=== PATIENT | female | born 1990 | race Two or more races ===

== ENCOUNTER 2017-02-24 10:02 | Emergency (ER) | payer OTHER ==
[2017-02-24] MEDS ORDERED: Ondansetron INJ* 2 MG/ML VIAL IV ONE (13:57)
[2017-02-24] MEDS ORDERED: Morphine INJ* 4 MG/ML 1 ML SYRINGE IV ONE (13:57)
[2017-02-24] MEDS ORDERED: NS 0.9% 1000 ML* 1,000 ML IV ONE (13:57)
[2017-02-24 14:50] LABS: Hematocrit 38 % (35-47); Hemoglobin 12.4 g/dl (12.0-16.0); Mean Corpuscular HGB Conc 33 g/dl (31-36); Mean Corpuscular Hemoglobin 26 pg (27-31); Mean Corpuscular Volume 80 fL (80-97); Mean Platelet Volume 8 um3 (7.4-10.4); Red Cell Distribution Width 16 % (10.5-15); White Blood Count 8.7 10^3/ul (3.5-10.8)
[2017-02-24 15:02] LABS: Urine Bacteria 3+ (Absent); Urine Bilirubin Negative (Negative); Urine Glucose Negative (Negative); Urine Nitrite Positive (Negative)
[2017-02-24 15:10] LABS: ALT 8 U/L (7-52); AST 10 U/L (13-39); Albumin 3.8 g/dL (3.2-5.2); Alkaline Phosphatase 43 U/L (34-104); Amylase 31 U/L (29-103); Anion Gap 6 mmol/L (2-11); BUN/Creatinine Ratio 14.5 (8-20); Blood Urea Nitrogen 10 mg/dL (6-24); C Reactive Protein 2.08 mg/L (< 5.00); CO2 Carbon Dioxide 24 mmol/L (22-32); Calcium 8.6 mg/dL (8.6-10.3); Chloride 106 mmol/L (101-111); EGFR African American 133.3 (>60); EGFR Non-African American 103.7 (>60); Globulin 3.1 g/dL (2-4); Glucose 88 mg/dL (70-100); Lipase 14 U/L (11.0-82.0); Magnesium 2.2 mg/dL (1.9-2.7); Potassium 3.7 mmol/L (3.5-5.0); Sodium 136 mmol/L (133-145); Total Protein 6.9 g/dL (6.4-8.9)
[2017-02-24] MEDS ORDERED: Iohexol 300* (CONTRAST) 10 ML SDV IV ONE (16:10)
--- NOTE | 2017-02-24 16:55 | RAD ---
INDICATION: Right lower quadrant abdominal pain. COMPARISON: Comparison is made with a prior CT of the abdomen and pelvis from April 06, 2016. TECHNIQUE: A CT scan of the abdomen and pelvis was performed with intravenous and oral contrast following intravenous injection of 150 ml of Omnipaque 300 nonionic contrast. Contiguous axial sections were obtained from the lung bases through the symphysis pubis. Images were reconstructed in the coronal and sagittal planes. FINDINGS: The lung bases are clear. No pleural effusion is present. The liver is within normal limits in size. There is a focal area of decreased attenuation present in the medial segment of the left hepatic lobe nonspecific although suggestive of focal fatty infiltration. The patient is status post cholecystectomy. No intra or extrahepatic ductal distention is noted. The spleen is upper limits of normal in size without focal abnormality. The pancreas appears to be within normal limits. The kidneys and adrenal glands are normal in size. No hydronephrosis is seen. No significant focal renal abnormality is seen. The aorta is normal in caliber and demonstrates homogeneous contrast opacification. No significant enlarged retroperitoneal lymph nodes are seen. The stomach, small and large bowel appear nondistended. The appendix is within normal limits. There is mild sigmoid diverticulosis. There is no evidence for diverticulitis or colitis. The uterus is anteverted and normal in size although heterogeneous suggestive of fibroid infiltration. There is a 2 cm involuting left follicular cyst and a small amount of free intraperineal fluid in the pelvis which extends into the right paracolic gutter. No significant focal osseous abnormality is seen. IMPRESSION: 1. 2 CM INVOLUTING LEFT FOLLICULAR CYST AND SMALL AMOUNT OF FREE INTRAPERITONEAL FLUID IN THE PELVIS. 2. STATUS POST CHOLECYSTECTOMY.
[2017-02-24] MEDS ORDERED: Ciprofloxacin TAB* 500 MG PO ONE (17:13)
[2017-02-24 18:04] VITALS: BP 119/66
--- NOTE | 2017-02-24 18:19 | ED ---
Nitin Akers Aidan, scribed for Efra Lowe MD on 02/24/17 at 1452 . Abdominal Pain/Female - HPI Summary HPI Summary: 26 y/o female presents to the ED with a complaint of acute, severe (reported 10/ 10) episodes of RLQ abdominal pain that radiate to her lower back and have persisted intermittently for the past week. Associated symptoms include nausea and vomiting. She denies any diarrhea, constipation, or . She had similar symptoms previously when she was diagnosed with hydronephrosis. Her last period was on February 05. Hx of trigeminal neuralgia, kidney stones, and gallbladder removal. - History of Current Complaint Chief Complaint: EDAbdPain Stated Complaint: ABD PAIN Time Seen by Provider: 02/24/17 13:49 Hx Obtained From: Patient Hx Last Menstrual Period: 02/05/17 ?: No Onset/Duration: Sudden Onset, Lasting Weeks - roughly 1 week, Still Present Timing: Constant Severity Initially: Moderate Severity Currently: Severe Pain Intensity: 8 - Pt reported 10/10 during examination. Pain Scale Used: 0-10 Numeric Location: Discrete At: RLQ Radiates: Yes Radiates to: Back - lower back Character: Sharp, Cramping Aggravating Factor(s): Other: - unknown Alleviating Factor(s): Other: - unknown Associated Signs and Symptoms: Positive: Nausea, Vomiting. Negative: Diarrhea - Risk Factors Ovarian Torsion Risk Factor: Reproductive Age Allergies/Adverse Reactions: Allergies Allergy/AdvReac Type Severity Reaction Status Date / Time Clarithromycin [From Biaxin] Allergy Intermediate Hives/fever Verified 07/08/16 14:26 Sulfamethoxazole Allergy Intermediate Hives Verified 07/08/16 14:26 w/Trimethoprim [From Bactrim] PMH/Surg Hx/FS Hx/Imm Hx Previously Healthy: No - Hx of trigeminal neuralgia, kidney stones, gallbladder removal Endocrine/Hematology History: Reports: Hx Anemia Denies: Hx Anticoagulant Therapy, Hx Diabetes, Hx Thyroid Disease, Other Endocrine/Hematological Disorders Cardiovascular History: Denies: Hx Congestive Heart Failure, Hx Hypertension, Hx Pacemaker/ICD, Other Cardiovascular Problems/Disorders Respiratory History: Reports: Hx Asthma Denies: Hx Chronic Obstructive Pulmonary Disease (COPD), Other Respiratory Problems/Disorders GI History: Reports: Hx Gall Bladder Disease Denies: Hx Ulcer, Other GI Disorders History: Reports: Other Problems/Disorders - Hx hydronephrosis x 1 year rt side/hx uti Denies: Hx Dialysis, Hx Renal Disease Musculoskeletal History: Denies: Hx Back Problems, Other Musculoskeletal History - R wrist fx x2 age 15, right ankle fracture Sensory History: Denies: Hx Contacts or Glasses, Hx Hearing Aid, Other Sensory Impairments Opthamlomology History: Denies: Hx Contacts or Glasses, Other Sensory Impairments Neurological History: Reports: Other Neuro Impairments/Disorders - trigeminal neuralgia Psychiatric History: Reports: Hx Anxiety, Hx Attention Deficit Hyperactivity Disorder, Hx Depression, Hx Panic Disorder - ANXIETY Denies: Other Psychiatric Issues/Disorders - Surgical History Surgery Procedure, Year, and Place: RT ANKLE FX-PINS SCREWS. . Gall Bladder. Tonsillectomy Hx Anesthesia Reactions: Yes - n/v Infectious Disease History: No Infectious Disease History: Denies: Hx Hepatitis, Hx Human Immunodeficiency Virus (HIV), History Other Infectious Disease, Traveled Outside the in Last 30 Days - Family History Known Family History: Positive: Hypertension Family History: No FHX of malignant hyperthermia. No FHx of anesthesia reaction - Social History Occupation: Employed Full-time Lives: Alone Alcohol Use: Occasionally Hx Substance Use: No Substance Use Type: Reports: None, Other Substance Use Comment - Amount & Last Used: prescribed. Smoking Status (MU): Light Every Day Tobacco Smoker Type: Cigarettes Amount Used/How Often: "socially" Review of Systems Constitutional: Negative Eyes: Negative ENT: Negative Cardiovascular: Negative Respiratory: Negative Positive: Abdominal Pain, Vomiting, Nausea. Negative: Diarrhea Genitourinary: Negative Musculoskeletal: Negative Skin: Negative Neurological: Negative Psychological: Normal All Other Systems Reviewed And Are Negative: Yes Physical Exam - Summary Physical Exam Summary: VITAL SIGNS: Reviewed. GENERAL: Patient is a well-developed and obese FEMALE who is lying comfortable in the stretcher. Patient is not in any acute respiratory distress. HEAD AND FACE: No signs of trauma. No ecchymosis, hematomas or skull depressions. No sinus tenderness. EYES: PERRLA, EOMI x 2, No injected conjunctiva, no nystagmus. EARS: Hearing grossly intact. Ear canals and tympanic membranes are within normal limits. MOUTH: Oropharynx within normal limits. NECK: Supple, trachea is midline, no adenopathy, no JVD, no carotid bruit, no c- spine tenderness, neck with full ROM. CHEST: Symmetric, no tenderness at palpation LUNGS: Clear to auscultation bilaterally. No wheezing or crackles. CVS: Regular rate and rhythm, S1 and S2 present, no murmurs or gallops appreciated. ABDOMEN: Soft. Positive RLQ tenderness. No signs of distention. No rebound no guarding, and no masses palpated. Bowel sounds are normal. EXTREMITIES: FROM in all major joints, no edema, no cyanosis or clubbing. NEURO: Alert and oriented x 3. No acute neurological deficits. Speech is normal and follows commands. SKIN: Dry and warm Triage Information Reviewed: Yes Vital Signs On Initial Exam: Initial Vitals Temp Pulse Resp BP Pulse Ox 97.2 F 71 17 101/53 100 02/24/17 10:56 02/24/17 10:56 02/24/17 10:56 02/24/17 10:56 02/24/17 10:56 Vital Signs Reviewed: Yes - Rita Coma Scale Coma Scale Total: 15 Diagnostics - Vital Signs Vital Signs Temp Pulse Resp BP Pulse Ox 02/24/17 14:36 16 02/24/17 11:53 97.4 F 67 17 96/64 100 02/24/17 10:58 97.8 F 78 17 101/53 100 02/24/17 10:56 97.2 F 71 17 101/53 100 - Laboratory Lab Results: Lab Results 02/24/17 02/24/17 02/24/17 Range/Units 14:10 14:10 14:10 WBC 8.7 (3.5-10.8) 10^3/ul RBC 4.80 (4.0-5.4) 10^6/ul Hgb 12.4 (12.0-16.0) g/dl Hct 38 (35-47) % MCV 80 (80-97) fL MCH 26 L (27-31) pg MCHC 33 (31-36) g/dl RDW 16 H (10.5-15) % Plt Count 242 (150-450) 10^3/ul MPV 8 (7.4-10.4) um3 Neut % (Auto) 56.3 (38-83) % Lymph % (Auto) 34.9 (25-47) % [place] % (Auto) 6.3 (1-9) % Eos % (Auto) 1.9 (0-6) % Baso % (Auto) 0.6 (0-2) % Absolute Neuts (auto) 4.9 (1.5-7.7) 10^3/ul Absolute Lymphs (auto) 3.0 (1.0-4.8) 10^3/ul Absolute Monos (auto) 0.5 (0-0.8) 10^3/ul Absolute Eos (auto) 0.2 (0-0.6) 10^3/ul Absolute Basos (auto) 0 (0-0.2) 10^3/ul Absolute Nucleated RBC 0 10^3/ul Nucleated RBC % 0 Sodium 136 (133-145) mmol/L Potassium 3.7 (3.5-5.0) mmol/L Chloride 106 (101-111) mmol/L Carbon Dioxide 24 (22-32) mmol/L Anion Gap 6 (2-11) mmol/L BUN 10 (6-24) mg/dL Creatinine 0.69 (0.51-0.95) mg/dL Est GFR ( Amer) 133.3 (>60) Est GFR (Non-Af Amer) 103.7 (>60) BUN/Creatinine Ratio 14.5 (8-20) Glucose 88 (70-100) mg/dL Lactic Acid 0.8 (0.5-2.0) mmol/L Calcium 8.6 (8.6-10.3) mg/dL Magnesium 2.2 (1.9-2.7) mg/dL Total Bilirubin 0.50 (0.2-1.0) mg/dL AST 10 L (13-39) U/L ALT 8 (7-52) U/L Alkaline Phosphatase 43 (34-104) U/L C-Reactive Protein 2.08 (< 5.00) mg/L Total Protein 6.9 (6.4-8.9) g/dL Albumin 3.8 (3.2-5.2) g/dL Globulin 3.1 (2-4) g/dL Albumin/Globulin Ratio 1.2 (1-3) Amylase 31 (29-103) U/L Lipase 14 (11.0-82.0) U/L Beta HCG, Quant < 0.60 mIU/mL Urine Color Urine Appearance Urine pH (5-9) Ur Specific [place] (1.010-1.030) Urine Protein (Negative) Urine Ketones (Negative) Urine Blood (Negative) Urine Nitrate (Negative) Urine Bilirubin (Negative) Urine Urobilinogen (Negative) Ur Leukocyte Esterase (Negative) Urine WBC (Auto) (Absent) Urine RBC (Auto) (Absent) Ur Squamous Epith Cells (Absent) Calcium Oxalate Crystal (Absent) Urine Bacteria (Absent) Urine Glucose (Negative) 02/24/17 Range/Units 14:40 WBC (3.5-10.8) 10^3/ul RBC (4.0-5.4) 10^6/ul Hgb (12.0-16.0) g/dl Hct (35-47) % MCV (80-97) fL MCH (27-31) pg MCHC (31-36) g/dl RDW (10.5-15) % Plt Count (150-450) 10^3/ul MPV (7.4-10.4) um3 Neut % (Auto) (38-83) % Lymph % (Auto) (25-47) % [place] % (Auto) (1-9) % Eos % (Auto) (0-6) % Baso % (Auto) (0-2) % Absolute Neuts (auto) (1.5-7.7) 10^3/ul Absolute Lymphs (auto) (1.0-4.8) 10^3/ul Absolute Monos (auto) (0-0.8) 10^3/ul Absolute Eos (auto) (0-0.6) 10^3/ul Absolute Basos (auto) (0-0.2) 10^3/ul Absolute Nucleated RBC 10^3/ul Nucleated RBC % Sodium (133-145) mmol/L Potassium (3.5-5.0) mmol/L Chloride (101-111) mmol/L Carbon Dioxide (22-32) mmol/L Anion Gap (2-11) mmol/L BUN (6-24) mg/dL Creatinine (0.51-0.95) mg/dL Est GFR ( Amer) (>60) Est GFR (Non-Af Amer) (>60) BUN/Creatinine Ratio (8-20) Glucose (70-100) mg/dL Lactic Acid (0.5-2.0) mmol/L Calcium (8.6-10.3) mg/dL Magnesium (1.9-2.7) mg/dL Total Bilirubin (0.2-1.0) mg/dL AST (13-39) U/L ALT (7-52) U/L Alkaline Phosphatase (34-104) U/L C-Reactive Protein (< 5.00) mg/L Total Protein (6.4-8.9) g/dL Albumin (3.2-5.2) g/dL Globulin (2-4) g/dL Albumin/Globulin Ratio (1-3) Amylase (29-103) U/L Lipase (11.0-82.0) U/L Beta HCG, Quant mIU/mL Urine Color Yellow Urine Appearance Cloudy Urine pH 5.0 (5-9) Ur Specific Carver 1.029 (1.010-1.030) Urine Protein Negative (Negative) Urine Ketones Negative (Negative) Urine Blood Negative (Negative) Urine Nitrate Positive H (Negative) Urine Bilirubin Negative (Negative) Urine Urobilinogen Negative (Negative) Ur Leukocyte Esterase Negative (Negative) Urine WBC (Auto) Absent (Absent) Urine RBC (Auto) Absent (Absent) Ur Squamous Epith Cells Present H (Absent) Calcium Oxalate Crystal Present H (Absent) Urine Bacteria 3+ H (Absent) Urine Glucose Negative (Negative) Result Diagrams: 02/24/17 14:10 02/24/17 14:10 Lab Statement: Any lab studies that have been ordered have been reviewed, and results considered in the medical decision making process. - CT ABDOMEN/PELVIS CT CT Interpretation: Positive (See Comments) - IMPRESSION: 1. 2 CM INVOLUTING LEFT FOLLICULAR CYST AND SMALL AMOUNT OF FREE INTRAPERITONEAL FLUID IN THE PELVIS. 2. STATUS POST CHOLECYSTECTOMY. CT Interpretation Completed By: Radiologist Abdominal Pain Fem Course/Dx - Course Course Of Treatment: 26 y/o female presents to the ED with a complaint of acute , severe (reported /10) episodes of RLQ abdominal pain that radiate to her lower back and have persisted intermittently for the past week. Associated symptoms include nausea and vomiting. She denies any diarrhea, constipation, or . She had similar symptoms previously when she was diagnosed with hydronephrosis. Her last period was on February 05. Hx of trigeminal neuralgia, kidney stones, and gallbladder removal. In the ED course an IV access was obtained. Patient was placed in a branch lead. Patient was started with IV fluids. Labs within normal limits except for. Abdominal and Pelvic CT IMPRESSION: 1. 2 CM INVOLUTING LEFT FOLLICULAR CYST AND SMALL AMOUNT OF FREE INTRAPERITONEAL FLUID IN THE PELVIS. 2. STATUS POST CHOLECYSTECTOMY. In the ED course she was given Zofran and Morphine for the pain. It seems that she has UTI and ovarian cyst. She was given Cipro for the UTI. She declined a pelvic exam since she denes any vaginal discharge or bleeding. She feels better and she will be discharged home with F/U of PMD. I discussed all the findings and test results with the patient. Patient was instructed to return to the emergency room immediately if any of the symptoms return or worsens. They were explained the possibility of an early abdominal pathology which was not detected at this time despite the physical exam and testing. They understand and agree. Abdominal exam before discharge: Soft, NT. No signs of distention. BS present. No rebound no guarding, and no masses palpated. Patient is alert and oriented and hemodynamically stable. Patient is to follow up with primary care physician in the next 2 to 3 days. Patient agree and understands. - Diagnoses Differential Diagnosis: Positive: Appendicitis, Bowel Obstruction, Constipation , Ovarian Cyst, Urinary Tract Infection Provider Diagnoses: UTI (urinary tract infection), Ovarian cyst Discharge - Discharge Plan Condition: Stable Disposition: HOME Discharge Disposition Comment: Please follow up with urology within 2 days. Prescriptions: Ciprofloxacin TAB* [Cipro 500 MG TAB*] 500 mg PO BID #6 tab Patient Education Materials: Ovarian Cyst (ED), Urinary Tract Infection in Women (ED) Referrals: Lenny Baker MD [Primary Care Provider] - The documentation as recorded by the Nitin hill Aidan accurately reflects the service I personally performed and the decisions made by me, Efra Lowe MD.
== END 2017-02-24 18:03 | disposition home or self-care (01) ==
LOC: ED 10:02
DX: N39.0 Urinary tract infection, site not specified (principal); N83.209 Unspecified ovarian cyst, unspecified side; R11.2 Nausea with vomiting, unspecified; R10.31 Right lower quadrant pain; M54.5 Low back pain
CPT/HCPCS: 36415; 74177; 80053; 81003; 81015; 82150; 83605; 83690; 83735; 84702; 85025; 86140; 87086; 96374; 96375; 99282; A9270-GY; J2270; J2405; Q9967

== ENCOUNTER 2017-04-05 16:34 | Emergency (ER) | payer OTHER ==
--- NOTE | 2017-04-05 21:11 | UC ---
Lower Extremity/Ankle HPI - HPI Summary HPI Summary: NINE DAYS AGO HAD LACERATION TO LEFT ANKLE. SINCE THAT TIME AREA HAS BECOME RED SWOLLEN, DISCHARGE FROM WOUND SITE. - History of Current Complaint Chief Complaint: UCLaceration Stated Complaint: SWOLLEN FOOT LAC Time Seen by Provider: 04/05/17 19:08 Hx Obtained From: Patient, Family/Coal Picker Hx Last Menstrual Period: 02/05/17 Onset/Duration: Gradual Onset, Lasting Weeks, Still Present Severity Initially: Moderate Severity Currently: Moderate Pain Intensity: 10 Pain Scale Used: 0-10 Numeric Aggravating Factor(s): Standing - Risk Factors Gout Risk Factors: Negative DVT Risk Factors: Negative Septic Arthritis Risk Factor: Negative - Allergies/Home Medications Allergies/Adverse Reactions: Allergies Allergy/AdvReac Type Severity Reaction Status Date / Time Clarithromycin [From Biaxin] Allergy Intermediate Hives/fever Verified 07/08/16 14:26 Sulfamethoxazole Allergy Intermediate Hives Verified 07/08/16 14:26 w/Trimethoprim [From Bactrim] PMH/Surg Hx/FS Hx/Imm Hx Previously Healthy: Yes Other History Of: Negative For: Anticoagulant Therapy - Surgical History Surgical History: Yes Surgery Procedure, Year, and Place: RT ANKLE FX-PINS SCREWS. . Gall Bladder. Tonsillectomy - Family History Known Family History: Positive: None - reviewed & noncontributory, Hypertension Family History: No FHX of malignant hyperthermia. No FHx of anesthesia reaction - Social History Occupation: Employed Full-time Lives: With Family Alcohol Use: Occasionally Substance Use Type: None, Other Substance Use Comment - Amount & Last Used: prescribed. Smoking Status (MU): Light Every Day Tobacco Smoker Type: Cigarettes Amount Used/How Often: "socially" Review of Systems Constitutional: Negative Skin: Negative Eyes: Negative ENT: Negative Respiratory: Negative Cardiovascular: Negative Gastrointestinal: Negative Genitourinary: Negative Motor: Negative Neurovascular: Negative Musculoskeletal: Myalgia Neurological: Negative Psychological: Negative All Other Systems Reviewed And Are Negative: Yes Physical Exam Triage Information Reviewed: Yes Appearance: Well-Appearing, No Pain Distress Vital Signs: Initial Vital Signs Temp 97.6 F 04/05/17 19:01 Pulse 87 04/05/17 19:01 Resp 18 04/05/17 19:01 Pulse Ox 99 04/05/17 19:01 Eye Exam: Normal ENT Exam: Normal ENT: Positive: Normal ENT inspection, Hearing grossly normal, TMs normal Dental Exam: Normal Neck exam: Normal Respiratory Exam: Normal Respiratory: Positive: Chest non-tender, Lungs clear, Normal breath sounds Cardiovascular Exam: Normal Cardiovascular: Positive: RRR, No Murmur, Pulses Normal Abdominal Exam: Normal Musculoskeletal Exam: Normal Musculoskeletal: Positive: Strength Intact, ROM Intact, No Edema Neurological Exam: Normal Psychological Exam: Normal Skin Exam: Normal Lower Extremity Course/Dx - Differential Dx/Diagnosis Differential Diagnosis/HQI/PQRI: Fracture (Closed), Sprain, Strain Provider Diagnoses: LEFT FOOT CELLULITIS Discharge - Discharge Plan Condition: Stable Disposition: HOME Prescriptions: Cephalexin CAP* [Keflex CAP*] 500 mg PO QID #40 cap Patient Education Materials: Cellulitis (ED) Referrals: Lenny Baker MD [Primary Care Provider] -
== END 2017-04-05 19:47 | disposition home or self-care (01) ==
LOC: UCEAST 16:34
DX: L03.116 Cellulitis of left lower limb (principal); Z72.0 Tobacco use
CPT/HCPCS: 87070; 87205; 99212; G0463

== ENCOUNTER 2017-05-26 13:29 | Emergency (ER) | payer OTHER ==
[2017-05-26] MEDS ORDERED: Amoxicillin PO (*) 500 MG CAP PO ONE (15:00)
[2017-05-26] MEDS ORDERED: Ondansetron ODT TAB* 4 MG PO ONE (15:00)
[2017-05-26] MEDS ORDERED: HYDROcodone/ACETAMIN 5-325 MG* 1 TAB PO ONE (15:00)
--- NOTE | 2017-05-26 15:14 | ED ---
Throat Pain/Nasal Congestion - HPI Summary HPI Summary: 27 female presents to ED with complaints of right dental pain and cheek pain that began 1 week ago and has been worsening. Patient states she thought at first it was her trigeminal neuralgia however it feels much different and is not going away. Admits to not having a dentist and having problems with fractured and "rotting teeth". Admits to fever/chills, states took temp yesterday at it was 100.3. Has tried taking tylenol, ibuprofen and toradol without relief. States she last took ibuprofen and left over toradol just [employer] around 2 hours ago. Hasn't been able to sleep because of the pain Denies any other complaints at this time. No chest pain, difficulty breathing, difficulty swallowing, sore throat or headache. No other PMHx. - History of Current Complaint Chief Complaint: EDDentalPain Time Seen by Provider: 05/26/17 13:37 Hx Obtained From: Patient Onset/Duration: Sudden Onset, Lasting Days, Still Present, Worse Since Severity: Moderate Cough: None - Allergies/Home Medications Allergies/Adverse Reactions: Allergies Allergy/AdvReac Type Severity Reaction Status Date / Time Clarithromycin [From Biaxin] Allergy Intermediate Hives/fever Verified 05/26/17 13:32 Sulfamethoxazole Allergy Intermediate Hives Verified 05/26/17 13:32 w/Trimethoprim [From Bactrim] PMH/Surg Hx/FS Hx/Imm Hx Endocrine/Hematology History: Reports: Hx Anemia Denies: Hx Anticoagulant Therapy, Hx Diabetes, Hx Thyroid Disease, Other Endocrine/Hematological Disorders Cardiovascular History: Denies: Hx Congestive Heart Failure, Hx Hypertension, Hx Pacemaker/ICD, Other Cardiovascular Problems/Disorders Respiratory History: Reports: Hx Asthma Denies: Hx Chronic Obstructive Pulmonary Disease (COPD), Other Respiratory Problems/Disorders GI History: Reports: Hx Gall Bladder Disease Denies: Hx Ulcer, Other GI Disorders History: Reports: Other Problems/Disorders - Hx hydronephrosis x 1 year rt side/hx uti Denies: Hx Dialysis, Hx Renal Disease Musculoskeletal History: Denies: Hx Back Problems, Other Musculoskeletal History - R wrist fx x2 age 15, right ankle fracture Sensory History: Denies: Hx Contacts or Glasses, Hx Hearing Aid, Other Sensory Impairments Opthamlomology History: Denies: Hx Contacts or Glasses, Other Sensory Impairments Neurological History: Reports: Other Neuro Impairments/Disorders - trigeminal neuralgia Psychiatric History: Reports: Hx Anxiety, Hx Attention Deficit Hyperactivity Disorder, Hx Depression, Hx Panic Disorder - ANXIETY Denies: Other Psychiatric Issues/Disorders - Surgical History Surgery Procedure, Year, and Place: RT ANKLE FX-PINS SCREWS. . Gall Bladder. Tonsillectomy Hx Anesthesia Reactions: Yes - n/v - Immunization History Immunizations Up to Date: Yes Infectious Disease History: No Infectious Disease History: Denies: Hx Clostridium Difficile, Hx Hepatitis, Hx Human Immunodeficiency Virus (HIV), Hx of Known/Suspected MRSA, Hx Shingles, Hx Tuberculosis, Hx Known/ Suspected VRE, Hx Known/Suspected VRSA, History Other Infectious Disease, Traveled Outside the [place] in Last 30 Days - Family History Known Family History: Positive: None - reviewed & noncontributory, Hypertension Family History: No FHX of malignant hyperthermia. No FHx of anesthesia reaction - Social History Alcohol Use: None Hx Substance Use: No Substance Use Type: Reports: None Substance Use Comment - Amount & Last Used: prescribed. Smoking Status (MU): Light Every Day Tobacco Smoker Type: Cigarettes Amount Used/How Often: "socially" Review of Systems Constitutional: Negative Eyes: Negative Positive: Dental Pain Cardiovascular: Negative Respiratory: Negative Positive: Vomiting, Nausea Skin: Negative Neurological: Negative All Other Systems Reviewed And Are Negative: Yes Physical Exam Triage Information Reviewed: Yes Vital Signs On Initial Exam: Initial Vitals Temp Pulse Resp BP Pulse Ox 98.3 F 68 16 121/81 99 05/26/17 13:32 05/26/17 13:32 05/26/17 13:32 05/26/17 13:32 05/26/17 13:32 Vital Signs Reviewed: Yes Appearance: Positive: Well-Appearing, Well-Nourished, Pain Distress - mild, sleeping upon arrival Skin: Positive: Warm, Skin Color Reflects Adequate Perfusion, Dry. Negative: Cold, Cyanosis @, Pale, Erythema @ Head/Face: Positive: Normal Head/Face Inspection Eyes: Positive: Normal, EOMI, KATHY, Conjunctiva Clear ENT: Positive: Normal ENT inspection, Hearing grossly normal, Pharynx normal, TMs normal Dental: Positive: Percussion Tenderness @ - right maxillary area, Gross Decay/ Caries @, Dental Fracture @. Negative: Abscess @ - not appreciated, Cervical Lymphadenopathy Neck: Positive: Supple, Nontender, No Lymphadenopathy - somewhat limited due to access adipose tissue Respiratory/Lung Sounds: Positive: Clear to Auscultation, Breath Sounds Present. Negative: Rales, Rhonchi, Wheezes Cardiovascular: Positive: Normal, RRR, Pulses are Symmetrical in both Upper and Lower Extremities. Negative: Murmur, Rub Abdomen Description: Positive: Nontender Bowel Sounds: Positive: Present Musculoskeletal: Positive: Normal, Strength/ROM Intact Neurological: Positive: Normal, Sensory/Motor Intact, Alert, Oriented to Person Place, Time, NV Bundle Intact Distally, Normal Gait Psychiatric: Positive: Affect/Mood Appropriate Diagnostics - Vital Signs Vital Signs Temp Pulse Resp BP Pulse Ox 05/26/17 14:14 98.8 F 72 18 138/79 99 05/26/17 13:32 98.3 F 68 16 121/81 99 - Laboratory Lab Statement: Any lab studies that have been ordered have been reviewed, and results considered in the medical decision making process. EENT Course/Dx - Course Course Of Treatment: given pain management, zofran and antibiotic as it appears patient is suffering from a dental abscess. patient had relief. educated on proper use of NSAIDs and toradol. continue directed pain management at home, along with antbiotic, zofran as needed and follow up dentist. Aware of worsening signs and symptoms to watch out for. Not given any more pain medication as she was prescribed 30 day supply of percocet on 05/10/17. Istop Reference #: [id number]. Follow up with pcp. return if worse or does not improve. - Differential Diagnoses Differential Diagnoses: Dental Abscess, Dental Caries, Fractured Tooth, Sinusitis, Temporal Arteritis, Trigeminal Neuralgia - Diagnoses Provider Diagnoses: Dental abscess, Pain, dental Discharge - Discharge Plan Condition: Stable Disposition: HOME Prescriptions: Amoxicillin PO (*) [Amoxicillin 500 MG CAP*] 500 mg PO Q12H #19 cap Ondansetron TAB* [Zofran 4 MG Tab*] 4 mg PO Q6H PRN #10 tab PRN Reason: Nausea Patient Education Materials: Dental Abscess (ED) Referrals: Lenny Baker MD [Primary Care Provider] - Additional Instructions: Follow up and make an appointment with dentist. Take your already prescribed percocet as needed for pain. Take 600-800 mg of ibuprofen every 6-8 hours, nothing else. Take antibiotic as directed, until entire dose is finished. Recommend taking probiotic pill or eating bulgarian yogurt in between doses. Warm compresses over right cheek. Drink plenty of fluids. Take zofran as needed for nausea. If symptoms do not improve or worsen please seek medical attention, as discussed.
[2017-05-26 16:04] VITALS: BP 119/77
== END 2017-05-26 16:04 | disposition home or self-care (01) ==
LOC: ED 13:29
DX: K04.7 Periapical abscess without sinus (principal); K08.89 Other specified disorders of teeth and supporting structures; F17.210 Nicotine dependence, cigarettes, uncomplicated
CPT/HCPCS: 99282; A9270-GY

== ENCOUNTER 2017-08-08 14:06 | Emergency (ER) | payer SELFPAY ==
[2017-08-08 14:47] VITALS: BP 131/70
--- NOTE | 2017-08-08 15:20 | UC ---
Binu Akers SooYoung, scribed for Jean Ramso MD on 08/08/17 at 1508 . General HPI - HPI Summary HPI Summary: A 27 y/o F presents to [facility] for medication refill. Pt states she is in the process of finding a PCP but her monthly medications have run out. She is take Lorazepam, Prozac, Oxycodone. Dr. Munoz is accepting new pts and she is hoping to see him soon. Pt has a secondary c/o chest congestion onset one week. Assocaited sx: productive cough that has been worsening, wheezing, chills. Denies fever. Aggravating factors: deep breaths, coughing. Alleviating factor: inhaler. Pt has a chronic ankle injury and trigeminal neuralgia. - History of Current Complaint Chief Complaint: UCMedRefill Stated Complaint: MED REFILL AND CONGESTION Time Seen by Provider: 08/08/17 14:52 Hx Obtained From: Patient Hx Last Menstrual Period: 07/30/17 Onset/Duration: Gradual Onset, Lasting Weeks - congestion, Still Present Timing: Constant Onset Severity: Moderate Current Severity: Moderate Associated Signs & Symptoms: Positive: Cough - productive, Wheezing, Other - chest congestion, chills. Negative: Fever - Allergy/Home Medications Allergies/Adverse Reactions: Allergies Allergy/AdvReac Type Severity Reaction Status Date / Time Clarithromycin [From Biaxin] Allergy Intermediate Hives/fever Verified 08/08/17 14:47 Sulfamethoxazole Allergy Intermediate Hives Verified 08/08/17 14:47 w/Trimethoprim [From Bactrim] PMH/Surg Hx/FS Hx/Imm Hx Previously Healthy: No - trigeminal neuralgia Psychological History: Anxiety, Depression Other History Of: Negative For: Anticoagulant Therapy - Surgical History Surgical History: Yes Surgery Procedure, Year, and Place: RT ANKLE FX-PINS SCREWS. . Gall Bladder. Tonsillectomy - Family History Known Family History: Positive: Hypertension Family History: No FHX of malignant hyperthermia. No FHx of anesthesia reaction - Social History Occupation: Employed Full-time Lives: With Family Alcohol Use: None Substance Use Type: None Substance Use Comment - Amount & Last Used: prescribed. Smoking Status (MU): Light Every Day Tobacco Smoker Type: Cigarettes Amount Used/How Often: "socially" Have You Smoked in the Last Year: Yes Household Exposure Type: Cigarettes Review of Systems Constitutional: Chills Respiratory: Cough, Other - chest congestion, wheezing All Other Systems Reviewed And Are Negative: Yes Physical Exam Triage Information Reviewed: Yes Vital Signs: Initial Vital Signs Temp 98 F 08/08/17 14:44 Pulse 76 08/08/17 14:44 Resp 16 08/08/17 14:44 BP 131/70 08/08/17 14:44 Pulse Ox 100 08/08/17 14:44 Vital Signs Reviewed: Yes Neck: Positive: 1 - Additional Comments Karina: well-appearing, no pain distress Head/Face: nml head/face inspection Eyes: EOMI, KATHY ENT: nml Neck: supple, non-tender Resp: dry cough, breath sounds present Cardio: RRR Abd: nontender, soft Bowel: present Musc: nml, strength/ROM intact Neuro: nml, sensory/motor intact, A&O x 3 Psych: affect/mood appropriate Skin: warm, skin color reflects adequate perfusion, dry Course/Dx - Course Course Of Treatment: A 27 y/o F presents to [facility] for medication refill. Pt states she is in the process of finding a PCP but her monthly medications have run out. She is take Lorazepam, Prozac, Oxycodone. Dr. Munoz is accepting new pts and she is hoping to see him soon. Pt has a secondary c/o chest congestion onset one week. Assocaited sx: productive cough that has been worsening, wheezing, chills. Denies fever. Aggravating factors: deep breaths, coughing. Alleviating factor: inhaler. Pt has a chronic ankle injury and trigeminal neuralgia. Medications reviewed this visit. Pre-Hypertensive BP reading (121-139/81-89); patient referred to PCP for follow-up. F/U WITH NEW PMD EXPECTED 08/12/17 - Differential Dx - Multi-Symptom Provider Diagnoses: bronchitis with asthma ecxacerbation. chronic right ankle pain. chronic right trigeminal neuralgia. anxiety. depression. Discharge - Discharge Plan Condition: Stable Disposition: HOME Prescriptions: Albuterol HFA INHALER* [Ventolin HFA Inhaler*] 2 puff INH Q4H PRN #1 mdi PRN Reason: Dyspnea Amoxicillin/Clavulanate TAB* [Augmentin TAB 875*] 875 mg PO BID #20 tab FLUoxetine CAP* [PROzac CAP*] 20 mg PO DAILY #30 cap LORazepam TAB(*) [Ativan 0.5 MG TAB (*)] 0.5 mg PO BEDTIME PRN #5 tab MDD 1 PRN Reason: Anxiety oxyCODONE/Acetamin 10/325(NF) [Percocet 10/325 (NF)] 1 tab PO Q6H #20 tab MDD 4 predniSONE TAB* [Deltasone TAB*] 40 mg PO DAILY #10 tab Patient Education Materials: Asthma (ED), Trigeminal Neuralgia (ED), Depression (ED), Acute Bronchitis (ED), Arthralgia (ED), Anxiety (ED) Referrals: Lenny Baker MD [Primary Care Provider] - Additional Instructions: FOLLOW UP WITH YOUR DOCTOR. RETURN TO THE EMERGENCY DEPARTMENT FOR ANY WORSENING OF YOUR CONDITION OR QUESTIONS OR CONCERNS. The documentation as recorded by the Binu hill SooYoung accurately reflects the service I personally performed and the decisions made by me, Jean Ramos MD.
== END 2017-08-08 15:28 | disposition home or self-care (01) ==
LOC: UCEAST 14:06
DX: J40 Bronchitis, not specified as acute or chronic (principal); J45.901 Unspecified asthma with (acute) exacerbation; G89.29 Other chronic pain; M25.571 Pain in right ankle and joints of right foot; G50.0 Trigeminal neuralgia; F41.8 Other specified anxiety disorders; Z72.0 Tobacco use
CPT/HCPCS: 99212; G0463

== ENCOUNTER 2017-08-13 10:45 | Emergency (ER) | payer SELFPAY ==
[2017-08-13 11:42] VITALS: BP 120/81
--- NOTE | 2017-08-13 13:05 | UC ---
Respiratory Complaint HPI - HPI Summary HPI Summary: 27 year old female with history of chronic pain and anxiety on lorazepam and oxycodone here for refill. She was seen here for similar complaint about one week ago, and she finished the course. She has PCP appt next week, and she wanted to have meds until then. Reports also congestion and cough that has not resolved. She is still smoking cigarettes. - History of Current Complaint Chief Complaint: UCGeneralIllness Stated Complaint: COUGH Time Seen by Provider: 08/13/17 12:29 Hx Obtained From: Patient Hx Last Menstrual Period: 07/30/2017 Onset/Duration: Sudden Onset, Gradual Onset Character: Cough: Productive Alleviating Factors: Bronchodilator, OTC Meds Associated Signs And Symptoms: Positive: Chills - Allergies/Home Medications Allergies/Adverse Reactions: Allergies Allergy/AdvReac Type Severity Reaction Status Date / Time Clarithromycin [From Biaxin] Allergy Intermediate Hives/fever Verified 08/13/17 11:27 Sulfamethoxazole Allergy Intermediate Hives Verified 08/13/17 11:27 w/Trimethoprim [From Bactrim] PMH/Surg Hx/FS Hx/Imm Hx Other History Of: Negative For: Anticoagulant Therapy - Surgical History Surgical History: Yes Surgery Procedure, Year, and Place: RT ANKLE FX-PINS SCREWS. . Gall Bladder. Tonsillectomy - Family History Known Family History: Positive: None - reviewed & noncontributory, Hypertension Family History: No FHX of malignant hyperthermia. No FHx of anesthesia reaction - Social History Alcohol Use: Rare Substance Use Type: None Substance Use Comment - Amount & Last Used: prescribed. Smoking Status (MU): Light Every Day Tobacco Smoker Type: Cigarettes Amount Used/How Often: 1-2 PER DAY Have You Smoked in the Last Year: Yes Household Exposure Type: Cigarettes - Immunization History Most Recent Influenza Vaccination: unsure Review of Systems Constitutional: Negative Skin: Negative Eyes: Negative ENT: Sore Throat Respiratory: Cough Cardiovascular: Negative Gastrointestinal: Negative Genitourinary: Negative Motor: Negative Neurovascular: Negative Musculoskeletal: Negative Neurological: Negative Psychological: Negative All Other Systems Reviewed And Are Negative: Yes Physical Exam Triage Information Reviewed: Yes Appearance: Well-Appearing, No Pain Distress Vital Signs: Initial Vital Signs Temp 36.8 C 08/13/17 11:26 Pulse 89 08/13/17 11:26 Resp 18 08/13/17 11:26 BP 120/81 08/13/17 11:26 Pulse Ox 99 08/13/17 11:26 ENT: Positive: Normal ENT inspection, Hearing grossly normal, Pharynx normal Dental Exam: Normal Respiratory Exam: Normal Respiratory: Positive: Chest non-tender, Lungs clear, Normal breath sounds, No respiratory distress Cardiovascular: Positive: RRR, No Murmur Abdomen Description: Positive: Nontender, No Organomegaly Musculoskeletal: Positive: No Edema Neurological: Positive: Alert UC Diagnostic Evaluation - Laboratory O2 Sat by Pulse Oximetry: 99 Respiratory Course/Dx - Differential Dx/Diagnosis Provider Diagnoses: #)Congestion. Instructed patient to stop smoking so symptoms improve. #) Meds refill. -Checked on istop and patient has been using the rx appropiately. -Instructed patient to ensure she goes to her PMD appt by next week Discharge - Discharge Plan Condition: Good Disposition: HOME Prescriptions: Dextromethorphan-Guaifenesin [Guaifenesin/Dextromethorp] 5 ml PO Q6HR PRN #1 bottle PRN Reason: Cough LORazepam TAB(*) [Ativan 0.5 MG TAB (*)] 0.5 mg PO BEDTIME PRN #5 tab MDD 1 PRN Reason: Anxiety oxyCODONE/Acetamin 10/325(NF) [Percocet 10/325 (NF)] 1 tab PO Q6H #20 tab MDD 4 Referrals: No Primary Care Phys,NOPCP [Primary Care Provider] - Additional Instructions: Please follow up with a primary doctor as soon as you get appointment.
== END 2017-08-13 13:10 | disposition home or self-care (01) ==
LOC: UCEAST 10:45
DX: R09.81 Nasal congestion (principal); F41.9 Anxiety disorder, unspecified; Z76.0 Encounter for issue of repeat prescription; G89.29 Other chronic pain; Z72.0 Tobacco use
CPT/HCPCS: 99212; G0463

== ENCOUNTER 2017-08-17 15:02 | Emergency (ER) | payer MEDICAID ==
[2017-08-17 16:34] VITALS: BP 135/92
--- NOTE | 2017-08-17 17:17 | UC ---
Shanice Akers Gabriel, scribed for Bel Nava MD on 08/17/17 at 1657 . General HPI - HPI Summary HPI Summary: This patient is a 27 year old F presenting to [facility] accompanied by her children with a request for a pain medication refill. The patient rates the pain 10/10 in severity. Patient says she has chronic ankle pain and needs to have her pain medication refilled because she is currently in-between doctors and has run out of medication. Pt states her primary care provider fired her from clinic second to missed appt. Pt states was given a 30 day supply. Pt states she was see in the on 08/08 and 08/13 - pt states she was given Rx for her meds at these appts. Pt states she has been cutting her her pills in half to make them last, but ran out yesterday. Pt states she had and appt with a Agustin MARS - had to cancel second to insurance issues. Pt states has an appt with Dr. Barron scheduled for Wednesday. Pt states her pain is getting bad and requesting scripts for Oxycodone and Lorazepam Pt denies n/v. No scott, vision changes. No chills. No other complaints - History of Current Complaint Chief Complaint: UCMedRefill Stated Complaint: MEDICATION REFILL Time Seen by Provider: 08/17/17 16:41 Hx Obtained From: Patient Hx Last Menstrual Period: 07/05/17 Onset/Duration: Still Present Onset Severity: Severe Pain Intensity: 10 Pain Location at: ankle - Allergy/Home Medications Allergies/Adverse Reactions: Allergies Allergy/AdvReac Type Severity Reaction Status Date / Time Clarithromycin [From Biaxin] Allergy Intermediate Hives/fever Verified 08/17/17 16:34 Sulfamethoxazole Allergy Intermediate Hives Verified 08/17/17 16:34 w/Trimethoprim [From Bactrim] PMH/Surg Hx/FS Hx/Imm Hx Previously Healthy: No Other History Of: Negative For: Anticoagulant Therapy - Surgical History Surgical History: Yes Surgery Procedure, Year, and Place: RT ANKLE FX-PINS SCREWS. . Gall Bladder. Tonsillectomy - Family History Known Family History: Positive: Hypertension Negative: Cardiac Disease, Diabetes Family History: No FHX of malignant hyperthermia. No FHx of anesthesia reaction - Social History Occupation: Unemployed Lives: With Family Alcohol Use: Rare Substance Use Type: None Substance Use Comment - Amount & Last Used: prescribed. Smoking Status (MU): Light Every Day Tobacco Smoker Type: Cigarettes Amount Used/How Often: 1-2 cigarettes Have You Smoked in the Last Year: Yes Household Exposure Type: Cigarettes - Immunization History Most Recent Influenza Vaccination: none Review of Systems Constitutional: Negative Motor: Other - chronic foot/ankle pain Musculoskeletal: Other: - ankle pain All Other Systems Reviewed And Are Negative: Yes Physical Exam Triage Information Reviewed: Yes Appearance: Well-Appearing, No Pain Distress, Well-Nourished Vital Signs: Initial Vital Signs Temp 97.6 F 08/17/17 16:29 Pulse 92 08/17/17 16:29 Resp 16 08/17/17 16:29 BP 135/92 08/17/17 16:29 Pulse Ox 100 08/17/17 16:29 Vital Signs Reviewed: Yes Eye Exam: Normal Eyes: Positive: Conjunctiva Clear ENT Exam: Normal ENT: Positive: Normal ENT inspection, Hearing grossly normal, Pharynx normal, TMs normal Neck exam: Normal Neck: Positive: Supple, Nontender, No Lymphadenopathy Respiratory Exam: Normal Respiratory: Positive: Chest non-tender, Lungs clear, Normal breath sounds, No respiratory distress, No accessory muscle use Cardiovascular Exam: Normal Cardiovascular: Positive: RRR, No Murmur, Pulses Normal Abdominal Exam: Normal Abdomen Description: Positive: Nontender, No Organomegaly, Soft Bowel Sounds: Positive: Present Musculoskeletal: Positive: Other: - Pt ambulating without difficulty or balance difficulty Neurological Exam: Normal Neurological: Positive: Alert Psychological Exam: Normal Skin Exam: Normal Course/Dx - Course Course Of Treatment: This patient is a 27 year old F presenting to [facility] accompanied by children with a request for a pain medication refill. Medications reviewed during this visit. Review of istop: #[id number]. Pt filled 5 days Rx 08/08 and 08/17. I addressed with pt - states "oh, I have 1 tablet left. " I expressed concern this contradicted pt's previous statement. I called Dr. Garner - pt has an appt at 9am on Wednesday. Offered 130pm on - pt unable second to appt with son. I again discussed with pt as this varied from her initial history. no Rx given. encouraged motrin/apap - discussed doses. heat. stretched. d/w pt if experiencing withdrawal - may go to ED for symtomatic treatment. Pt states understanding - Differential Dx - Multi-Symptom Provider Diagnoses: medication refill Discharge - Discharge Plan Condition: Stable Disposition: HOME Patient Education Materials: Medicine Refill (ED) Referrals: Santiago Barron MD [Medical Doctor] - Additional Instructions: Keep your appointment as scheduled with Dr. Barron on 08/20/17 at 9am. They are expecting your okay to alternate ibuprofen (Advil, Motrin) 600mg and Tylenol (1000mg) every 6 hours for pain. Take with food Stay well hydrated - avoid excess caffeine and alcohol As discussed, Dr. Barron's office has appointment available on - if you are able to rearrange your other commitments, call to schedule these appointment - As discussed, controlled substance refill prescriptions are not routinely written at the urgent care center. If you feel you are in withdrawal, it is recommended you go to the emergency department where they maybe able to help with your withdrawal symptoms. The documentation as recorded by the Shanice hill Gabriel accurately reflects the service I personally performed and the decisions made by , Bel Nava MD.
== END 2017-08-17 17:19 | disposition home or self-care (01) ==
LOC: UCEAST 15:02
DX: F17.210 Nicotine dependence, cigarettes, uncomplicated (principal)
CPT/HCPCS: 99211; G0463

== ENCOUNTER 2017-08-31 12:34 | Emergency (ER) | payer MEDICAID | END 2017-08-31 14:53 | disposition left against medical advice (07) | LOC: UCEAST 12:34 | DX: Z76.0 Encounter for issue of repeat prescription (principal); Z53.21 Procedure and treatment not carried out due to patient leaving prior to being seen by health care provider ==

== ENCOUNTER 2017-08-31 17:08 | Emergency (ER) | payer MEDICAID ==
--- NOTE | 2017-08-31 19:48 | ED ---
HPI Chest Pain - HPI Summary HPI Summary: 27F presents with right side trigeminal neuralgia pain that has gotten worst over past two weeks. She states she had neg CT in the past. She states she is prescribed lorazepam and percocet for pain. She is not prescribed anything else for the trigeminal neuralgia. She denies any fever. She admits to a cough and chest pain that has been intermittent. last time had chest pain was over 3 hours ago. She states she is getting over bronchitis as believes it is from such. She is not on control. no family history of CAD. no history of HTN or DM. She states she is waiting for her primary to get records for her pain meds. She states urgent care gave some pain medication after thanksgiving. She is requesting more pain medication. - History of Current Complaint Chief Complaint: EDGeneral Time Seen by Provider: 08/31/17 18:58 Hx Last Menstrual Period: 07/05/17 Pain Intensity: 10 - Allergy/Home Medications Allergies/Adverse Reactions: Allergies Allergy/AdvReac Type Severity Reaction Status Date / Time Clarithromycin [From Biaxin] Allergy Intermediate Hives/fever Verified 08/31/17 17:40 Sulfamethoxazole Allergy Intermediate Hives Verified 08/31/17 17:40 w/Trimethoprim [From Bactrim] PMH/Surg Hx/FS Hx/Imm Hx Endocrine/Hematology History: Reports: Hx Anemia Denies: Hx Anticoagulant Therapy, Hx Diabetes, Hx Thyroid Disease, Other Endocrine/Hematological Disorders Cardiovascular History: Denies: Hx Congestive Heart Failure, Hx Hypertension, Hx Pacemaker/ICD, Other Cardiovascular Problems/Disorders Respiratory History: Reports: Hx Asthma Denies: Hx Chronic Obstructive Pulmonary Disease (COPD), Other Respiratory Problems/Disorders GI History: Reports: Hx Gall Bladder Disease Denies: Hx Ulcer, Other GI Disorders History: Reports: Other Problems/Disorders - Hx hydronephrosis x 1 year rt side/hx uti Denies: Hx Dialysis, Hx Renal Disease Musculoskeletal History: Denies: Hx Back Problems, Other Musculoskeletal History - R wrist fx x2 age 15, right ankle fracture Sensory History: Denies: Hx Contacts or Glasses, Hx Hearing Aid, Other Sensory Impairments Opthamlomology History: Denies: Hx Contacts or Glasses, Other Sensory Impairments Neurological History: Reports: Other Neuro Impairments/Disorders - trigeminal neuralgia Psychiatric History: Reports: Hx Anxiety, Hx Attention Deficit Hyperactivity Disorder, Hx Depression, Hx Panic Disorder - ANXIETY Denies: Other Psychiatric Issues/Disorders - Surgical History Surgery Procedure, Year, and Place: RT ANKLE FX-PINS SCREWS. . Gall Bladder. Tonsillectomy Hx Anesthesia Reactions: Yes - n/v Infectious Disease History: No Infectious Disease History: Denies: Hx Clostridium Difficile, Hx Hepatitis, Hx Human Immunodeficiency Virus (HIV), Hx of Known/Suspected MRSA, Hx Shingles, Hx Tuberculosis, Hx Known/ Suspected VRE, Hx Known/Suspected VRSA, History Other Infectious Disease, Traveled Outside the [place] in Last 30 Days - Family History Known Family History: Positive: None - reviewed & noncontributory, Hypertension Negative: Cardiac Disease, Diabetes Family History: No FHX of malignant hyperthermia. No FHx of anesthesia reaction - Social History Alcohol Use: Rare Hx Substance Use: No Substance Use Type: Reports: None Substance Use Comment - Amount & Last Used: prescribed. Smoking Status (MU): Light Every Day Tobacco Smoker Type: Cigarettes Amount Used/How Often: 1-2 cigarettes Have You Smoked in the Last Year: Yes Review of Systems Negative: Fever Positive: Chest Pain Positive: Shortness Of Breath, Cough Neurological: Other - trigeminal neuralgia All Other Systems Reviewed And Are Negative: Yes Physical Exam Triage Information Reviewed: Yes Vital Signs On Initial Exam: Initial Vitals Temp Pulse Resp BP Pulse Ox 98.1 F 72 16 127/71 99 08/31/17 17:35 08/31/17 17:35 08/31/17 17:35 08/31/17 17:35 08/31/17 17:35 Vital Signs Reviewed: Yes Appearance: Positive: Well-Appearing Skin: Positive: Warm, Dry Head/Face: Positive: Normal Head/Face Inspection Eyes: Positive: Normal, EOMI, KATHY, Conjunctiva Clear ENT: Positive: Normal ENT inspection, Pharynx normal, TMs normal Respiratory/Lung Sounds: Positive: Clear to Auscultation, Breath Sounds Present , Other - chest wall tenderness Cardiovascular: Positive: Normal, RRR Abdomen Description: Positive: Nontender, Soft Bowel Sounds: Positive: Present Musculoskeletal: Positive: Normal Neurological: Positive: Sensory/Motor Intact, Alert, Oriented to Person Place, Time, CN Intact II-III Psychiatric: Positive: Normal - Joffre Coma Scale Coma Scale Total: 15 Diagnostics - Vital Signs Vital Signs Temp Pulse Resp BP Pulse Ox 08/31/17 17:35 98.1 F 72 16 127/71 99 - Laboratory Result Diagrams: 08/31/17 20:18 08/31/17 20:18 Lab Statement: Any lab studies that have been ordered have been reviewed, and results considered in the medical decision making process. - Radiology chest Xray Interpretation: No Acute Changes Radiology Interpretation Completed By: Radiologist - EKG No standard instances EKG Rhythm: Sinus Rhythm EKG Interpretation: normal sinus rhythm Chest Pain Course/Dx - Course Course Of Treatment: 27F presents with right side trigeminal neuralgia pain that has gotten worst over past two weeks. She states she had neg CT in the past. She states she is prescribed lorazepam and percocet for pain. She is not prescribed anything else for the trigeminal neuralgia. She denies any fever. She admits to a cough and chest pain that has been intermittent. last time had chest pain was over 3 hours ago. She states she is getting over bronchitis as believes it is from such. She is not on control. no family history of CAD. no history of HTN or DM. She states she is waiting for her primary to get records for her pain meds. She states urgent care gave some pain medication after thanksgiving. She is requesting more pain medication. on exam tenderness chest wall on exam. lungs CTA. normal neuro exam. explained that will treat with carbamazepine as is appropiate for trigeminal neuralgia. ekg, chest xray and lab work normal. patient became upset and said want to speak to my economic manager. so spoke with dr chapa who agrees perocet is not the appropiate treatment for trigeminal neuralgia. - Chest Pain Differential Diagnosis/HQI/PQRI: Chest Wall, Lower Respiratory Infection, Pulmonary Embolism, Other: - trigeminal neuralgia - Diagnoses Provider Diagnoses: Trigeminal neuralgia of right side of face, Chest pain Discharge - Discharge Plan Condition: Good Disposition: HOME Prescriptions: carBAMazepine TAB(*) [Tegretol TAB(*)] 200 mg PO BID #30 tab MDD 1000mg Patient Education Materials: Trigeminal Neuralgia (ED) Referrals: Santiago Barron MD [Primary Care Provider] - Jacob Garcia MD [Medical Doctor] - Additional Instructions: The ED can not be used for chronic pain management this has to be done by the primary For the trigeminal neuralgia will start carbazepine twice a day for 3 days, increase by 1 tab for next three days, increase until pain is under control with maximum of 5 tabs a day A referral for neurology was given to follow up about the trigeminal neuralgia Follow up with primary within 5 days Return to ED if develop any new or worsening symptoms
--- NOTE | 2017-08-31 19:57 | RAD ---
INDICATION: Chest pain. Cough. COMPARISON: Chest x-ray December 17, 2012 TECHNIQUE: PA and lateral dual-energy views were obtained. FINDINGS: Bones/Soft Tissues: There are no acute bony findings. Cardiomediastinal: The cardiomediastinal silhouette is normal. Lungs: There are no infiltrates. Pleura: There are no pleural effusions. Other: None IMPRESSION: NO ACTIVE DISEASE
[2017-08-31] MEDS ORDERED: Ketorolac INJ* 60 MG/2 ML VIAL IM ONE (20:36)
[2017-08-31 20:39] LABS: Hematocrit 35 % (35-47); Hemoglobin 11.6 g/dl (12.0-16.0); Mean Corpuscular HGB Conc 33 g/dl (31-36); Mean Corpuscular Hemoglobin 26 pg (27-31); Mean Corpuscular Volume 79 fL (80-97); Mean Platelet Volume 8 um3 (7.4-10.4); Red Blood Count 4.45 10^6/ul (4.0-5.4); Red Cell Distribution Width 16 % (10.5-15); White Blood Count 6.4 10^3/ul (3.5-10.8)
[2017-08-31 20:43] LABS: Albumin 3.7 g/dL (3.2-5.2); BUN/Creatinine Ratio 10.4 (8-20); Calcium 8.8 mg/dL (8.6-10.3); EGFR African American 116.5 (>60); EGFR Non-African American 90.6 (>60); Potassium 3.8 mmol/L (3.5-5.0); Total Bilirubin 0.2 mg/dL (0.2-1.0); Total Protein 6.7 g/dL (6.4-8.9)
[2017-08-31] MEDS ORDERED: carBAMazepine TAB(*) 200 MG PO ONE (20:49)
[2017-08-31 22:03] VITALS: BP 140/79
== END 2017-08-31 22:00 | disposition home or self-care (01) ==
LOC: ED 17:08
DX: G50.0 Trigeminal neuralgia (principal); R07.9 Chest pain, unspecified; R06.02 Shortness of breath; R05 Cough; F17.210 Nicotine dependence, cigarettes, uncomplicated
CPT/HCPCS: 36415; 71020; 80053; 84484; 85025; 85379; 93005; 96374; 99282; A9270-GY; J1885

== ENCOUNTER 2017-09-21 10:56 | Emergency (ER) | payer MEDICAID ==
[2017-09-21 12:41] VITALS: BP 131/70
--- NOTE | 2017-09-21 13:23 | UC ---
Knee Pain HPI - HPI Summary HPI Summary: Pt presents with left knee pain s/p fall 2 days ago. She tells me that 2 days ago she felt dizzy and fell down at home - twisted her left knee while falling. She admits she was dehydrated and thinks this was why. She has not had any symptoms since. Denies weakness, dizziness, headache, neck pain, SOB, chest pain , abdominal pain, n/v/d/c, body aches, or recent illness. Currently she is able to ambulate, but with pain. - History of Current Complaint Chief Complaint: UCLowerExtremity Stated Complaint: KNEE PAIN Time Seen by Provider: 09/21/17 13:23 Hx Obtained From: Patient Hx Last Menstrual Period: 09/01/17 Onset/Duration: Sudden Onset Severity Initially: Severe Severity Currently: Severe Pain Intensity: 10 Pain Scale Used: 0-10 Numeric Aggravating Factor(s): Movement, Weight Bearing Alleviating Factor(s): Rest, Position - Allergies/Home Medications Allergies/Adverse Reactions: Allergies Allergy/AdvReac Type Severity Reaction Status Date / Time Clarithromycin [From Biaxin] Allergy Intermediate Hives/fever Verified 09/21/17 12:41 Sulfamethoxazole Allergy Intermediate Hives Verified 09/21/17 12:41 w/Trimethoprim [From Bactrim] Home Medications: Home Medications Ibuprofen [Ibuprofen 200 MG] 600 mg PO Q6HR PRN 09/21/17 [History Confirmed 05/31] PMH/Surg Hx/FS Hx/Imm Hx Psychological History: Anxiety Other History Of: Negative For: Anticoagulant Therapy - Surgical History Surgical History: Yes Surgery Procedure, Year, and Place: RT ANKLE FX-PINS SCREWS. . Gall Bladder. Tonsillectomy - Family History Known Family History: Positive: None - reviewed & noncontributory, Hypertension Negative: Cardiac Disease, Diabetes Family History: No FHX of malignant hyperthermia. No FHx of anesthesia reaction - Social History Alcohol Use: Rare Substance Use Type: None Substance Use Comment - Amount & Last Used: prescribed. Smoking Status (MU): Light Every Day Tobacco Smoker Type: Cigarettes Amount Used/How Often: 1/2 cig/day Have You Smoked in the Last Year: Yes Household Exposure Type: Cigarettes Cessation Counseling: Counseled 3+Min - 10 Min - Immunization History Most Recent Influenza Vaccination: NOT UTD Review of Systems Constitutional: Negative Respiratory: Negative Cardiovascular: Negative Neurovascular: Negative Musculoskeletal: Other: - Left knee pain All Other Systems Reviewed And Are Negative: Yes Physical Exam Triage Information Reviewed: Yes Appearance: Well-Appearing, No Pain Distress, Obese Vital Signs: Initial Vital Signs Temp 97.5 F 09/21/17 12:37 Pulse 73 09/21/17 12:37 Resp 16 09/21/17 12:37 BP 131/70 09/21/17 12:37 Pulse Ox 100 09/21/17 12:37 Vital Signs Reviewed: Yes Neck: Positive: Supple, Other: - NTTP. FROM. Respiratory: Positive: Chest non-tender, Lungs clear, Normal breath sounds Cardiovascular: Positive: RRR, No Murmur, Pulses Normal Musculoskeletal: Positive: No Edema, Strength Limited @ - 4/5 left LE compared to right LE, ROM Limited @ - Left knee. Active flexion to 45 degrees before pain. Full extension, Other: - TTP all over left knee, medial aspect > lateral aspect. Unable to perform specialized testing due to pain. Neurological: Positive: Alert, Other: - CN II-XII grossly intact. No focal deficits. B/L LEs sensations intact Psychological: Positive: Age Appropriate Behavior Skin: Negative: rashes, significant lesion(s) Knee Pain Course/Dx - Course Course Of Treatment: Knee XR: IMPRESSION: JOINT EFFUSION, NO FRACTURE IS SEEN. IF THE PATIENT'S SYMPTOMS PERSIST RECOMMEND FOLLOW-UP IMAGING. Suspect left knee contusion vs internal derangement. JOHNATHON wrap and crutches today. I advised her to follow up with orthopedics at their next available appointment. Regarding her recent fall - she declined testing today and says she would not have come if it "weren't for her knee". - Differential Dx/Diagnosis Provider Diagnoses: Left knee pain Discharge - Discharge Plan Condition: Stable Disposition: HOME Patient Education Materials: Knee Pain (ED) Referrals: No Primary Care Phys,NOPCP [Primary Care Provider] - Darno Haider MD [Medical Doctor] - If Needed Additional Instructions: If you develop a fever, shortness of breath, chest pain, new or worsening symptoms - please call your PCP or go to the ED. 1) Rest, Ice, and elevate your knee as much as possible over the next 24- 48hours. 2) Use the crutches as needed and weight bear as tolerated 3) May take ibuprofen 600mg every 6-8 hours as needed for pain 4) If symptoms worsen or persist longer than 7-10days, please call Dr. Haider at the number below to schedule a follow up appointment.
--- NOTE | 2017-09-21 13:25 | RAD ---
INDICATION: Left knee injury. COMPARISON: Comparison is made with a prior x-ray study of the left knee from November 13, 2015. TECHNIQUE: 4 views of the left knee were obtained. FINDINGS: The bones are normal alignment. There is a joint effusion present. No fracture is seen. There is a lucent lesion in the proximal tibia in the subarticular bone measuring 1 cm in size which appears similar to the prior study likely representing a subchondral cyst. Joint spaces appear maintained. IMPRESSION: JOINT EFFUSION, NO FRACTURE IS SEEN. IF THE PATIENT'S SYMPTOMS PERSIST RECOMMEND FOLLOW-UP IMAGING.
== END 2017-09-21 13:55 | disposition home or self-care (01) ==
LOC: UCEAST 10:56
DX: M25.562 Pain in left knee (principal); M25.462 Effusion, left knee; F41.9 Anxiety disorder, unspecified; Z90.49 Acquired absence of other specified parts of digestive tract; Z90.89 Acquired absence of other organs; E66.9 Obesity, unspecified; Z88.1 Allergy status to other antibiotic agents; Z88.2 Allergy status to sulfonamides; Z71.6 Tobacco abuse counseling; F17.210 Nicotine dependence, cigarettes, uncomplicated
CPT/HCPCS: 99213; G0463

== ENCOUNTER 2018-11-18 00:07 | Emergency (ER) | payer OTHER ==
--- OUTSIDE RECORDS SUMMARY | 2018-11-18 00:32 | XMS REPORT | Continuity of Care Document ---
:1990 External Reference #:[id number] Author Name Santiago Barron M.D. 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 Payers Date Identification Numbers Payment Provider Subscriber Effective: 2018 Policy Number: [id number] [facility] Elizabeth Acosta PayID: [id number] [place] [address] Policy Number: [id number] [employer] Elizabeth Acosta PayID: [id number] [address] [place] [address] Advance Directives Description No Information Available Problems Description No Information Family History Date Family Member(s) Observation Comments General Congestive Heart Failure General Diabetes General Hypertension Father Age is Unknown Mother Congestive Heart Failure Mother 49 Mother Diabetes Mother Hypertension Children 2 Siblings 2 Social History Type Date Description Comments Sex Unknown Work Status Unemployed ETOH Use Occasionally consumes alcohol Tobacco Use Start: Unknown Light tobacco smoker (10 or fewer cigarettes/day) Recreational Drug Use Denies Drug Use Smoking Status Reviewed: 09/19/18 Light tobacco smoker (10 or fewer cigarettes/day) Allergies, Adverse Reactions, Alerts Date Description Reaction Status Severity Comments 08/26/2017 Sulfamethoxazole / Trimethoprim Active 08/26/2017 Clarithromycin Active Medications Medication Date Status Form Strength Qnty SIG Indications Ordering Provider Oxycodone-Acet 08/26/20 Active Tablets 10-325mg 120tabs 1 tab by M25.571 Anderson aminophen 17 mouth Santiago Jensen, four M.DRalph times a day as needed G50.0 Nicotine 03/10/20 Hx Patches 24HR 21mg/24 30units apply one patch F17.210 AndersonDonniemad 18 - HR topically once M., M.D. 03/13/20 daily 18 Nicotrol 09/15/19 Hx Inhaler 10mg 168unit 1 by mouth every F17.210 Anderson Ahmad 18 - s 4 hours as M. M.D. 10/14/19 needed 18 Amoxicillin 09/02/20 Hx Tablets 500mg 40tabs 2 by mouth twice M25.571 Anderson, Ahmad 17 - a day M., M.D. 09/12/20 17 Prednisone 09/02/20 Hx Tablets 20mg 8tabs 2 tab by mouth M25.571 Donnie Barronmad 17 - daily 4 days M., M.D. 09/05/20 17 Lorazepam 08/26/20 Hx Tablets 0.5mg 30tabs 1 tab by mouth G47.00 Anderson Donniemad 17 - twice a day as MCamila RosasDRalph 09/30/19 needed 18 F41.9 Fluoxetine HCL 08/26/2017 - Hx Capsules 20mg 30caps 1 by mouth F41.9 Anderson, Donniemad (PMDD) 10/14/2017 every day James Jensen F33.9 Immunizations Description No Information Available Vital Signs Date Vital Result Comment 10/20/2018 10:42am BP Systolic 126 mmHg BP Diastolic 70 mmHg Height 66 inches 5'6" Weight 263.00 lb BMI (Body Mass Index) 42.4 kg/m2 Heart Rate 90 /min Respiratory Rate 16 /min 09/20/2018 11:22am BP Systolic 118 mmHg BP Diastolic 70 mmHg Height 66 inches 5'6" Weight 265.00 lb BMI (Body Mass Index) 42.8 kg/m2 Heart Rate 82 /min Respiratory Rate 16 /min 08/18/2018 11:26am BP Systolic 110 mmHg BP Diastolic 68 mmHg Height 66 inches 5'6" Weight 262.00 lb BMI (Body Mass Index) 42.3 kg/m2 Heart Rate 95 /min Respiratory Rate 16 /min 07/21/2018 11:31am BP Systolic 118 mmHg BP Diastolic 62 mmHg Height 66 inches 5'6" Weight 262.00 lb BMI (Body Mass Index) 42.3 kg/m2 Heart Rate 115 /min Respiratory Rate 14 /min 06/21/2018 11:10am BP Systolic 126 mmHg BP Diastolic 70 mmHg Height 66 inches 5'6" Weight 259.00 lb BMI (Body Mass Index) 41.8 kg/m2 Heart Rate 100 /min Respiratory Rate 16 /min 05/19/2018 11:53am BP Systolic 124 mmHg BP Diastolic 82 mmHg Height 66 inches 5'6" Weight 264.00 lb BMI (Body Mass Index) 42.6 kg/m2 Heart Rate 82 /min Respiratory Rate 14 /min 05/05/2018 11:10am BP Systolic 110 mmHg BP Diastolic 70 mmHg Height 66 inches 5'6" Weight 264.00 lb BMI (Body Mass Index) 42.6 kg/m2 Heart Rate 79 /min Respiratory Rate 16 /min 04/21/2018 11:05am BP Systolic 128 mmHg BP Diastolic 70 mmHg Height 66 inches 5'6" Weight 264.00 lb BMI (Body Mass Index) 42.6 kg/m2 Heart Rate 91 /min Respiratory Rate 14 /min 04/06/2018 11:33am BP Systolic 110 mmHg BP Diastolic 72 mmHg Height 66 inches 5'6" Weight 262.00 lb BMI (Body Mass Index) 42.3 kg/m2 Heart Rate 82 /min Respiratory Rate 16 /min 03/10/2018 4:23pm BP Systolic 118 mmHg BP Diastolic 68 mmHg Height 66 inches 5'6" Weight 268.00 lb BMI (Body Mass Index) 43.3 kg/m2 Heart Rate 97 /min Respiratory Rate 16 /min 02/09/2018 11:45am BP Systolic 132 mmHg BP Diastolic 80 mmHg Height 66 inches 5'6" Weight 264.00 lb BMI (Body Mass Index) 42.6 kg/m2 Heart Rate 116 /min Respiratory Rate 18 /min 01/10/2018 11:39am BP Systolic 118 mmHg BP Diastolic 80 mmHg Height 66 inches 5'6" Weight 264.00 lb BMI (Body Mass Index) 42.6 kg/m2 Heart Rate 87 /min Respiratory Rate 16 /min 12/08/2017 10:25am BP Systolic 108 mmHg BP Diastolic 72 mmHg Height 66 inches 5'6" Weight 269.00 lb BMI (Body Mass Index) 43.4 kg/m2 Heart Rate 87 /min Respiratory Rate 18 /min 11/23/2017 3:23pm BP Systolic 114 mmHg BP Diastolic 68 mmHg Height 66 inches 5'6" Weight 264.00 lb BMI (Body Mass Index) 42.6 kg/m2 Heart Rate 78 /min Respiratory Rate 16 /min 11/15/2017 11:20am BP Systolic 118 mmHg BP Diastolic 82 mmHg Height 66 inches 5'6" Weight 264.00 lb BMI (Body Mass Index) 42.6 kg/m2 Heart Rate 88 /min Respiratory Rate 18 /min 10/29/2017 11:40am BP Systolic 110 mmHg BP Diastolic 62 mmHg Height 66 inches 5'6" Weight 264.00 lb BMI (Body Mass Index) 42.6 kg/m2 Heart Rate 98 /min Respiratory Rate 18 /min 10/15/2017 11:39am BP Systolic 110 mmHg BP Diastolic 62 mmHg Height 66 inches 5'6" Weight 265.00 lb BMI (Body Mass Index) 42.8 kg/m2 Heart Rate 78 /min Respiratory Rate 18 /min 09/29/2017 2:16pm BP Systolic 118 mmHg BP Diastolic 72 mmHg Height 66 inches 5'6" Weight 258.00 lb BMI (Body Mass Index) 41.6 kg/m2 Heart Rate 95 /min Respiratory Rate 18 /min 09/15/2017 2:07pm BP Systolic 122 mmHg BP Diastolic 82 mmHg Height 66 inches 5'6" Weight 258.00 lb BMI (Body Mass Index) 41.6 kg/m2 Heart Rate 90 /min Respiratory Rate 18 /min 09/02/2017 9:12am BP Systolic 110 mmHg BP Diastolic 62 mmHg Height 66 inches 5'6" Weight 257.00 lb BMI (Body Mass Index) 41.5 kg/m2 Heart Rate 93 /min Respiratory Rate 18 /min 08/26/2017 11:22am BP Systolic 126 mmHg BP Diastolic 72 mmHg Height 66 inches 5'6" Weight 259.00 lb BMI (Body Mass Index) 41.8 kg/m2 Heart Rate 48 /min Respiratory Rate 18 /min Results Test Date Facility Test Result H/L Range Note Ethyl Glucuronide 04/06/2018 [facility] Ethyl Negative N 500 Glucuronide ng/mL PDF SEE IMAGE Laboratory test finding 04/06/2018 [facility] Tramadol Negative ng/mL N 5 1 Gabapentin Negative ng/mL N 100 2 Urine DRG SCR 04/06/2018 [facility] Amphetamine NEGATIVE N 1000 (12PNL-PM) Barbiturate NEGATIVE N 200 Benzodiazepine NEGATIVE N 200 Buprenorphine NEGATIVE N 15 Cannabinoid NEGATIVE N 50 Cocaine NEGATIVE N 300 Methadone NEGATIVE N 300 Opiate POSITIVE Abnormal 300 Oxycodone POSITIVE Abnormal 300 Phencyclidine NEGATIVE N 25 3 Cocaine Panel By 04/06/2018 [facility] Benzoylecgonine Negative ng/mL N 50 4 LC/MS/MS (Cocaine) Amphetamine Panel 04/06/2018 [facility] Amphetamine Negative ng/ mL N 50 By LC/MS/MS Methamphetamine Negative ng/mL N 50 Mdma (Ecstasy) Negative ng/mL N 50 Mda Negative ng/ml N 50 Mdea Negative ng/mL N 50 5 Specimen Validity 04/06/2018 [facility] Creatinine, Urine 84 mg/ dL N >20 Panel Color YELLOW N Yellow pH 6.8 N 5.0-8.0 Specific [place] 1.012 N 1.001-1.035 6 Opiates Panel By 04/06/2018 [facility] 6-Rohit (Heroin Negative ng/ mL N 5 LC/MS/MS Metabolite) Codeine Negative ng/mL N 50 Hydrocodone Negative ng/mL N 50 Hydromorphone Negative ng/mL N 50 Morphine Negative ng/mL N 50 Norhydrocodone Negative ng/mL N 50 Noroxycodone 3778 Positive Co <SEE NOTE> ng/mL N 50 7 Noroxymorphone 2529 Positive Co <SEE NOTE> ng/mL N 50 8 Oxycodone 3304 Positive Co <SEE NOTE> ng/mL N 50 9 Oxymorphone Positive >5000 C <SEE NOTE> ng/mL N 50 10 Methadone Panel By 04/06/2018 [facility] Eddp Negative ng/mL N 10 LC/MS/MS Methadone Negative ng/mL N 10 11 Buprenorphine Panel By 04/06/2018 [facility] Buprenorphine Negative ng/mL N 5 LC/MS/MS Naloxone Negative ng/mL N 10 Norbuprenorphine Negative ng/mL N 5 12 Benzodiazepines 04/06/2018 [facility] 2-Hydroxyethylflurazepam Negative N 10 Panel By LC/MS/MS ng/mL 7-Aminoclonazepam Negative ng/mL N 10 Alprazolam Negative ng/mL N 10 Chlordiazepoxide Negative ng/mL N 10 Clonazepam Negative ng/mL N 10 Desalkylflurazepam Negative ng/mL N 10 Diazepam Negative ng/mL N 10 Lorazepam Negative ng/mL N 10 Midazolam Negative ng/ml N 10 Nordiazepam Negative ng/mL N 10 Alpha-hydroxyalprazolam Negative ng/mL N 10 Alpha-Hydroxymidazolam Negative ng/mL N 10 Alpha-Hydroxytriazolam Negative ng/mL N 10 Oxazepam Negative ng/mL N 10 Prazepam Negative ng/mL N 10 Temazepam Negative ng/mL N 10 13 Barbiturates Panel By 04/06/2018 [facility] Butalbital Negative ng/mL N 100 LC/MS/MS Pentobarbital Negative ng/mL N 100 Phenobarbital Negative ng/mL N 100 Secobarbital Negative ng/mL N 100 14 Antidepressants Panel 04/06/2018 [facility] Amitriptyline Negative ng/mL N 20 By LC/MS/MS Clomipramine Negative ng/mL N 20 Desipramine Negative ng/mL N 20 Doxepin Negative ng/mL N 20 Fluoxetine Negative ng/mL N 20 Imipramine Negative ng/mL N 20 Norclomipramine Negative ng/mL N 20 Nordoxepin Negative ng/mL N 20 Nortriptyline Negative ng/mL N 20 Sertraline Negative ng/mL N 20 Trimipramine Negative ng/mL N 20 15 Urine Drug [facility] 04/06/2018 [facility] [id number]-[id number] Negative ng/mL N 5 16 Ethyl Glucuronide 10/15/2017 [facility] Ethyl Glucuronide Negative ng/mL N 500 PDF SEE IMAGE Laboratory test finding 10/15/2017 [facility] Tramadol Negative ng/mL N 5 17 Gabapentin Negative ng/mL N 100 18 Cotinine Positive Consist <SEE NOTE> ng/mL N 500 19 Urine DRG SCR 10/15/2017 [facility] Amphetamine NEGATIVE N 1000 (12PNL-PM) Barbiturate NEGATIVE N 200 Benzodiazepine NEGATIVE N 200 Buprenorphine NEGATIVE N 15 Cannabinoid NEGATIVE N 50 Cocaine NEGATIVE N 300 Methadone NEGATIVE N 300 Eddp NEGATIVE N 300 Methaqualone NEGATIVE N 300 Opiate POSITIVE Abnormal 300 Oxycodone POSITIVE Abnormal 300 Phencyclidine NEGATIVE N 25 Propoxyphene NEGATIVE N 300 20 Cocaine Panel By 10/15/2017 [facility] Benzoylecgonine Negative ng/mL N 50 21 LC/MS/MS (Cocaine) Amphetamine Panel 10/15/2017 [facility] Amphetamine Negative ng/ mL N 50 By LC/MS/MS Methamphetamine Negative ng/mL N 50 Mdma (Ecstasy) Negative ng/mL N 50 Mda Negative ng/ml N 50 Mdea Negative ng/mL N 50 22 Specimen Validity 10/15/2017 [facility] Creatinine, Urine 261 mg/ dL N >20 Panel Color YELLOW N Yellow pH 7.3 N 5.0-8.0 Specific [place] 1.018 N 1.001-1.035 23 Opiates Panel By 10/15/2017 [facility] 6-Rohit (Heroin Negative ng/ mL N 5 LC/MS/MS Metabolite) Codeine Negative ng/mL N 50 Hydrocodone Negative ng/mL N 50 Hydromorphone Negative ng/mL N 50 Morphine Negative ng/mL N 50 Norhydrocodone Negative ng/mL N 50 Noroxycodone Positive >5000 C <SEE NOTE> ng/mL N 50 24 Noroxymorphone 3501 Positive Co <SEE NOTE> ng/mL N 50 25 Oxycodone Positive >5000 C <SEE NOTE> ng/mL N 50 26 Oxymorphone Positive >5000 C <SEE NOTE> ng/mL N 50 27 Methadone Panel By 10/15/2017 [facility] Eddp Negative ng/mL N 10 LC/MS/MS Methadone Negative ng/mL N 10 28 Buprenorphine Panel By 10/15/2017 [facility] Buprenorphine Negative ng/mL N 5 LC/MS/MS Naloxone Negative ng/mL N 10 Norbuprenorphine Negative ng/mL N 5 29 Benzodiazepines 10/15/2017 [facility] 2-Hydroxyethylflurazepam Negative N 10 Panel By LC/MS/MS ng/mL 7-Aminoclonazepam Negative ng/mL N 10 Alprazolam Negative ng/mL N 10 Chlordiazepoxide Negative ng/mL N 10 Clonazepam Negative ng/mL N 10 Desalkylflurazepam Negative ng/mL N 10 Diazepam Negative ng/mL N 10 Lorazepam Negative ng/mL N 10 Midazolam Negative ng/ml N 10 Nordiazepam Negative ng/mL N 10 Alpha-hydroxyalprazolam Negative ng/mL N 10 Alpha-Hydroxymidazolam Negative ng/mL N 10 Alpha-Hydroxytriazolam Negative ng/mL N 10 Oxazepam Negative ng/mL N 10 Prazepam Negative ng/mL N 10 Temazepam Negative ng/mL N 10 Zolpidem Negative ng/mL N 10 30 Barbiturates Panel By 10/15/2017 [facility] Butalbital Negative ng/mL N 100 LC/MS/MS Pentobarbital Negative ng/mL N 100 Phenobarbital Negative ng/mL N 100 Secobarbital Negative ng/mL N 100 31 Antidepressants Panel 10/15/2017 [facility] Amitriptyline Negative ng/mL N 20 By LC/MS/MS Clomipramine Negative ng/mL N 20 Desipramine Negative ng/mL N 20 Doxepin Negative ng/mL N 20 Fluoxetine Negative Inconsi <SEE NOTE> ng/mL Abnormal 20 32 Imipramine Negative ng/mL N 20 Norclomipramine Negative ng/mL N 20 Nordoxepin Negative ng/mL N 20 Nortriptyline Negative ng/mL N 20 Sertraline Negative ng/mL N 20 Trimipramine Negative ng/mL N 20 33 Urine Drug [facility] 10/15/2017 [facility] [id number]-Cooh Negative ng/mL N 5 34 Ethyl Glucuronide 09/29/2017 [facility] Ethyl Glucuronide Negative ng/mL N 500 PDF SEE IMAGE Laboratory test finding 09/29/2017 [facility] Tramadol Negative ng/mL N 5 35 Gabapentin Negative ng/mL N 100 36 Cotinine Positive Consist <SEE NOTE> ng/mL N 500 37 Urine DRG SCR 09/29/2017 [facility] Amphetamine NEGATIVE N 1000 (12PNL-PM) Barbiturate NEGATIVE N 200 Benzodiazepine NEGATIVE N 200 Buprenorphine NEGATIVE N 15 Cannabinoid NEGATIVE N 50 Cocaine NEGATIVE N 300 Methadone NEGATIVE N 300 Eddp NEGATIVE N 300 Methaqualone NEGATIVE N 300 Opiate POSITIVE Abnormal 300 Oxycodone POSITIVE Abnormal 300 Phencyclidine NEGATIVE N 25 Propoxyphene NEGATIVE N 300 38 Cocaine Panel By 09/29/2017 [facility] Benzoylecgonine Negative ng/mL N 50 39 LC/MS/MS (Cocaine) Amphetamine Panel 09/29/2017 [facility] Amphetamine Negative ng/ mL N 50 By LC/MS/MS Methamphetamine Negative ng/mL N 50 Mdma (Ecstasy) Negative ng/mL N 50 Mda Negative ng/ml N 50 Mdea Negative ng/mL N 50 40 Specimen Validity 09/29/2017 [facility] Creatinine, Urine 172 mg/ dL N >20 Panel Color YELLOW N Yellow pH 5.5 N 5.0-8.0 Specific [place] 1.020 N 1.001-1.035 41 Opiates Panel By 09/29/2017 [facility] 6-Rohit (Heroin Negative ng/ mL N 5 LC/MS/MS Metabolite) Codeine Negative ng/mL N 50 Hydrocodone Negative ng/mL N 50 Hydromorphone Negative ng/mL N 50 Morphine Negative ng/mL N 50 Norhydrocodone Negative ng/mL N 50 Noroxycodone Positive >5000 C <SEE NOTE> ng/mL N 50 42 Noroxymorphone Positive Consist <SEE NOTE> ng/mL N 50 43 Oxycodone Positive Consist <SEE NOTE> ng/mL N 50 44 Oxymorphone Positive >5000 C <SEE NOTE> ng/mL N 50 45 Methadone Panel By 09/29/2017 [facility] Eddp Negative ng/mL N 10 LC/MS/MS Methadone Negative ng/mL N 10 46 Buprenorphine Panel By 09/29/2017 [facility] Buprenorphine Negative ng/mL N 5 LC/MS/MS Naloxone Negative ng/mL N 10 Norbuprenorphine Negative ng/mL N 5 47 Benzodiazepines 09/29/2017 [facility] 2-Hydroxyethylflurazepam Negative N 10 Panel By LC/MS/MS ng/mL 7-Aminoclonazepam Negative ng/mL N 10 Alprazolam Negative ng/mL N 10 Chlordiazepoxide Negative ng/mL N 10 Clonazepam Negative ng/mL N 10 Desalkylflurazepam Negative ng/mL N 10 Diazepam Negative ng/mL N 10 Lorazepam Negative Inconsi <SEE NOTE> ng/mL Abnormal 10 48 Midazolam Negative ng/ml N 10 Nordiazepam Negative ng/mL N 10 Alpha-hydroxyalprazolam Negative ng/mL N 10 Alpha-Hydroxymidazolam Negative ng/mL N 10 Alpha-Hydroxytriazolam Negative ng/mL N 10 Oxazepam Negative ng/mL N 10 Prazepam Negative ng/mL N 10 Temazepam Negative ng/mL N 10 Zolpidem Negative ng/mL N 10 49 Barbiturates Panel By 09/29/2017 [facility] Butalbital Negative ng/mL N 100 LC/MS/MS Pentobarbital Negative ng/mL N 100 Phenobarbital Negative ng/mL N 100 Secobarbital Negative ng/mL N 100 50 Antidepressants Panel 09/29/2017 [facility] Amitriptyline Negative ng/mL N 20 By LC/MS/MS Clomipramine Negative ng/mL N 20 Desipramine Negative ng/mL N 20 Doxepin Negative ng/mL N 20 Fluoxetine Negative Inconsi <SEE NOTE> ng/mL Abnormal 20 51 Imipramine Negative ng/mL N 20 Norclomipramine Negative ng/mL N 20 Nordoxepin Negative ng/mL N 20 Nortriptyline Negative ng/mL N 20 Sertraline Negative ng/mL N 20 Trimipramine Negative ng/mL N 20 52 Urine Drug 09/29/2017 [facility] [id number] Negative ng/mL N 5 53 [facility] test 08/31/2017 [facility] Troponin-I (TnI) 0.00 ng/mL < 0.04 finding Comp Metabolic 08/31/2017 [facility] Sodium 136 mmol/L N 133-145 Panel Potassium 3.8 mmol/L N 3.5-5.0 Chloride 105 mmol/L N 101-111 Co2 Carbon Dioxide 28 mmol/L N 22-32 Anion Gap 3 mmol/L N 2-11 Glucose 84 mg/dL N 70-100 Blood Urea Nitrogen 8 mg/dL N 6-24 Creatinine 0.77 mg/dL N 0.51-0.95 BUN/Creatinine Ratio 10.4 N 8-20 Calcium 8.8 mg/dL N 8.6-10.3 Total Protein 6.7 g/dL N 6.4-8.9 Albumin 3.7 g/dL N 3.2-5.2 Globulin 3.0 g/dL N 2-4 Albumin/Globulin Ratio 1.2 N 1-3 Total Bilirubin 0.20 mg/dL N 0.2-1.0 Alkaline Phosphatase 49 U/L N 34-104 Alt 8 U/L N 7-52 Ast 9 U/L Low 13-39 Egfr Non- 90.6 >60 Egfr 116.5 >60 54 CBC Auto Diff 08/31/2017 [facility] White Blood Count 6.4 10^3/uL N 3.5-10.8 Red Blood Count 4.45 10^6/uL N 4.0-5.4 Hemoglobin 11.6 g/dL Low 12.0-16.0 Hematocrit 35 % N 35-47 Mean Corpuscular Volume 79 fL Low 80-97 Mean Corpuscular Hemoglobin 26 pg Low 27-31 Mean Corpuscular HGB Conc 33 g/dL N 31-36 Red Cell Distribution Width 16 % High 10.5-15 Platelet Count 239 10^3/uL N 150-450 Mean Platelet Volume 8 um3 N 7.4-10.4 Abs Neutrophils 2.8 10^3/uL N 1.5-7.7 Abs Lymphocytes 2.9 10^3/uL N 1.0-4.8 Abs Monocytes 0.4 10^3/uL N 0-0.8 Abs Eosinophils 0.2 10^3/uL N 0-0.6 Abs Basophils 0 10^3/uL N 0-0.2 Abs Nucleated RBC 0 10^3/uL Granulocyte % 43.7 % N 38-83 Lymphocyte % 45.6 % N 25-47 Monocyte % 6.9 % N 1-9 Eosinophil % 3.2 % N 0-6 Basophil % 0.6 % N 0-2 Nucleated Red Blood Cells % 0 Laboratory test 08/31/2017 [facility] Dimer < 200 ng/mL N Less Than 55 finding Quantitative 230 Ethyl Glucuronide 08/26/2017 [facility] Ethyl Glucuronide Negative N 500 ng/mL PDF SEE IMAGE Laboratory test finding 08/26/2017 [facility] Tramadol Negative ng/mL N 5 56 Gabapentin Negative ng/mL N 100 57 Urine DRG SCR 08/26/2017 [facility] Amphetamine NEGATIVE N 1000 (12PNL-PM) Barbiturate NEGATIVE N 200 Benzodiazepine NEGATIVE N 200 Buprenorphine NEGATIVE N 15 Cannabinoid NEGATIVE N 50 Cocaine NEGATIVE N 300 Methadone NEGATIVE N 300 Eddp NEGATIVE N 300 Methaqualone NEGATIVE N 300 Opiate POSITIVE Abnormal 300 Oxycodone POSITIVE Abnormal 300 Phencyclidine NEGATIVE N 25 Propoxyphene NEGATIVE N 300 58 Cocaine Panel By 08/26/2017 [facility] Benzoylecgonine Negative ng/mL N 50 59 LC/MS/MS (Cocaine) Amphetamine Panel 08/26/2017 [facility] Amphetamine Negative ng/ mL N 50 By LC/MS/MS Methamphetamine Negative ng/mL N 50 Mdma (Ecstasy) Negative ng/mL N 50 Mda Negative ng/ml N 50 Mdea Negative ng/mL N 50 60 Specimen Validity 08/26/2017 [facility] Creatinine, Urine 37 mg/ dL N >20 Panel Color YELLOW N Yellow pH 6.8 N 5.0-8.0 Specific [place] 1.007 N 1.001-1.035 61 Opiates Panel By 08/26/2017 [facility] 6-Rohit (Heroin Negative ng/ mL N 5 LC/MS/MS Metabolite) Codeine Negative ng/mL N 50 Hydrocodone Negative ng/mL N 50 Hydromorphone Negative ng/mL N 50 Morphine Negative ng/mL N 50 Norhydrocodone Negative ng/mL N 50 Noroxycodone Positive Consist <SEE NOTE> ng/mL N 50 62 Noroxymorphone Positive Consist <SEE NOTE> ng/mL N 50 63 Oxycodone Positive Consist <SEE NOTE> ng/mL N 50 64 Oxymorphone Positive >5000 C <SEE NOTE> ng/mL N 50 65 Methadone Panel By 08/26/2017 [facility] Eddp Negative ng/mL N 10 LC/MS/MS Methadone Negative ng/mL N 10 66 Buprenorphine Panel By 08/26/2017 [facility] Buprenorphine Negative ng/mL N 5 LC/MS/MS Naloxone Negative ng/mL N 10 Norbuprenorphine Negative ng/mL N 5 67 Benzodiazepines 08/26/2017 [facility] 2-Hydroxyethylflurazepam Negative N 10 Panel By LC/MS/MS ng/mL 7-Aminoclonazepam Negative ng/mL N 10 Alprazolam Negative ng/mL N 10 Chlordiazepoxide Negative ng/mL N 10 Clonazepam Negative ng/mL N 10 Desalkylflurazepam Negative ng/mL N 10 Diazepam Negative ng/mL N 10 Lorazepam Negative Inconsi <SEE NOTE> ng/mL Abnormal 10 68 Midazolam Negative ng/ml N 10 Nordiazepam Negative ng/mL N 10 Alpha-hydroxyalprazolam Negative ng/mL N 10 Alpha-Hydroxymidazolam Negative ng/mL N 10 Alpha-Hydroxytriazolam Negative ng/mL N 10 Oxazepam Negative ng/mL N 10 Prazepam Negative ng/mL N 10 Temazepam Negative ng/mL N 10 Zolpidem Negative ng/mL N 10 69 Barbiturates Panel By 08/26/2017 [facility] Butalbital Negative ng/mL N 100 LC/MS/MS Pentobarbital Negative ng/mL N 100 Phenobarbital Negative ng/mL N 100 Secobarbital Negative ng/mL N 100 70 Antidepressants Panel 08/26/2017 [facility] Amitriptyline Negative ng/mL N 20 By LC/MS/MS Clomipramine Negative ng/mL N 20 Desipramine Negative ng/mL N 20 Doxepin Negative ng/mL N 20 Fluoxetine Negative Inconsi <SEE NOTE> ng/mL Abnormal 20 71 Imipramine Negative ng/mL N 20 Norclomipramine Negative ng/mL N 20 Nordoxepin Negative ng/mL N 20 Nortriptyline Negative ng/mL N 20 Sertraline Negative ng/mL N 20 Trimipramine Negative ng/mL N 20 72 Urine Drug 08/26/2017 [facility] [id number] Negative ng/mL N 5 73 [facility] 1 Prescribed Medications: Oxycodone (Oxycodone), Acetaminophen (Acetaminophen) 2 Prescribed Medications: Oxycodone (Oxycodone), Acetaminophen (Acetaminophen) 3 Prescribed Medications: Oxycodone (Oxycodone), Acetaminophen (Acetaminophen) 4 Prescribed Medications: Oxycodone (Oxycodone), Acetaminophen (Acetaminophen) 5 Prescribed Medications: Oxycodone (Oxycodone), Acetaminophen (Acetaminophen) 6 Prescribed Medications: Oxycodone (Oxycodone), Acetaminophen (Acetaminophen) 7 3778 Positive Consistent 8 2529 Positive Consistent Noroxymorphone is the metabolite of four different parent drugs: oxycodone, oxymorphone, naloxone and naltrexone. 9 3304 Positive Consistent 10 Positive >5000 Consistent Prescribed Medications: Oxycodone (Oxycodone), Acetaminophen (Acetaminophen) 11 Prescribed Medications: Oxycodone (Oxycodone), Acetaminophen (Acetaminophen ) 12 Prescribed Medications: Oxycodone (Oxycodone), Acetaminophen (Acetaminophen ) 13 Prescribed Medications: Oxycodone (Oxycodone), Acetaminophen (Acetaminophen ) 14 Prescribed Medications: Oxycodone (Oxycodone), Acetaminophen (Acetaminophen ) 15 Prescribed Medications: Oxycodone (Oxycodone), Acetaminophen (Acetaminophen ) 16 Prescribed Medications: Oxycodone (Oxycodone), Acetaminophen (Acetaminophen ) 17 Prescribed Medications: Oxycodone (Oxycodone), Fluoxetine (Fluoxetine), Acetaminophen (Acetaminophen), Nicotrol (Cotinine) 18 Prescribed Medications: Oxycodone (Oxycodone), Fluoxetine (Fluoxetine), Acetaminophen (Acetaminophen), Nicotrol (Cotinine) 19 Positive Consistent Prescribed Medications: Oxycodone (Oxycodone), Fluoxetine (Fluoxetine), Acetaminophen (Acetaminophen), Nicotrol (Cotinine) 20 Prescribed Medications: Oxycodone (Oxycodone), Fluoxetine (Fluoxetine), Acetaminophen (Acetaminophen), Nicotrol (Cotinine) 21 Prescribed Medications: Oxycodone (Oxycodone), Fluoxetine (Fluoxetine), Acetaminophen (Acetaminophen), Nicotrol (Cotinine) 22 Prescribed Medications: Oxycodone (Oxycodone), Fluoxetine (Fluoxetine), Acetaminophen (Acetaminophen), Nicotrol (Cotinine) 23 Prescribed Medications: Oxycodone (Oxycodone), Fluoxetine (Fluoxetine), Acetaminophen (Acetaminophen), Nicotrol (Cotinine) 24 Positive >5000 Consistent 25 3501 Positive Consistent Noroxymorphone is the metabolite of four different parent drugs: oxycodone, oxymorphone, naloxone and naltrexone. 26 Positive >5000 Consistent 27 Positive >5000 Consistent Prescribed Medications: Oxycodone (Oxycodone), Fluoxetine (Fluoxetine), Acetaminophen (Acetaminophen), Nicotrol (Cotinine) 28 Prescribed Medications: Oxycodone (Oxycodone), Fluoxetine (Fluoxetine), Acetaminophen (Acetaminophen), Nicotrol (Cotinine) 29 Prescribed Medications: Oxycodone (Oxycodone), Fluoxetine (Fluoxetine), Acetaminophen (Acetaminophen), Nicotrol (Cotinine) 30 Prescribed Medications: Oxycodone (Oxycodone), Fluoxetine (Fluoxetine), Acetaminophen (Acetaminophen), Nicotrol (Cotinine) 31 Prescribed Medications: Oxycodone (Oxycodone), Fluoxetine (Fluoxetine), Acetaminophen (Acetaminophen), Nicotrol (Cotinine) 32 Negative Inconsistent 33 Prescribed Medications: Oxycodone (Oxycodone), Fluoxetine (Fluoxetine), Acetaminophen (Acetaminophen), Nicotrol (Cotinine) 34 Prescribed Medications: Oxycodone (Oxycodone), Fluoxetine (Fluoxetine), Acetaminophen (Acetaminophen), Nicotrol (Cotinine) 35 Prescribed Medications: Lorazepam (Lorazepam), Oxycodone (Oxycodone), Fluoxetine (Fluoxetine), Acetaminophen (Acetaminophen), Nicotrol (Cotinine) 36 Prescribed Medications: Lorazepam (Lorazepam), Oxycodone (Oxycodone), Fluoxetine (Fluoxetine), Acetaminophen (Acetaminophen), Nicotrol (Cotinine) 37 Positive Consistent Prescribed Medications: Lorazepam (Lorazepam), Oxycodone (Oxycodone), Fluoxetine (Fluoxetine), Acetaminophen (Acetaminophen), Nicotrol (Cotinine) 38 Prescribed Medications: Lorazepam (Lorazepam), Oxycodone (Oxycodone), Fluoxetine (Fluoxetine), Acetaminophen (Acetaminophen), Nicotrol (Cotinine) 39 Prescribed Medications: Lorazepam (Lorazepam), Oxycodone (Oxycodone), Fluoxetine (Fluoxetine), Acetaminophen (Acetaminophen), Nicotrol (Cotinine) 40 Prescribed Medications: Lorazepam (Lorazepam), Oxycodone (Oxycodone), Fluoxetine (Fluoxetine), Acetaminophen (Acetaminophen), Nicotrol (Cotinine) 41 Prescribed Medications: Lorazepam (Lorazepam), Oxycodone (Oxycodone), Fluoxetine (Fluoxetine), Acetaminophen (Acetaminophen), Nicotrol (Cotinine) 42 Positive >5000 Consistent 43 Positive Consistent Noroxymorphone is the metabolite of four different parent drugs: oxycodone, oxymorphone, naloxone and naltrexone. 44 Positive Consistent 45 Positive >5000 Consistent Prescribed Medications: Lorazepam (Lorazepam), Oxycodone (Oxycodone), Fluoxetine (Fluoxetine), Acetaminophen (Acetaminophen), Nicotrol (Cotinine) 46 Prescribed Medications: Lorazepam (Lorazepam), Oxycodone (Oxycodone), Fluoxetine (Fluoxetine), Acetaminophen (Acetaminophen), Nicotrol (Cotinine) 47 Prescribed Medications: Lorazepam (Lorazepam), Oxycodone (Oxycodone), Fluoxetine (Fluoxetine), Acetaminophen (Acetaminophen), Nicotrol (Cotinine) 48 Negative Inconsistent 49 Prescribed Medications: Lorazepam (Lorazepam), Oxycodone (Oxycodone), Fluoxetine (Fluoxetine), Acetaminophen (Acetaminophen), Nicotrol (Cotinine) 50 Prescribed Medications: Lorazepam (Lorazepam), Oxycodone (Oxycodone), Fluoxetine (Fluoxetine), Acetaminophen (Acetaminophen), Nicotrol (Cotinine) 51 Negative Inconsistent 52 Prescribed Medications: Lorazepam (Lorazepam), Oxycodone (Oxycodone), Fluoxetine (Fluoxetine), Acetaminophen (Acetaminophen), Nicotrol (Cotinine) 53 Prescribed Medications: Lorazepam (Lorazepam), Oxycodone (Oxycodone), Fluoxetine (Fluoxetine), Acetaminophen (Acetaminophen), Nicotrol (Cotinine) 54 Because ethnic data is not always readily available, this report includes an eGFR for both -Americans and non- Americans. The National Kidney Disease Education Program (NKDEP) does not endorse the use of the MDRD equation for patients that are not between the ages of 18 and 70, are , have extremes of body size, muscle mass, or nutritional status, or are non- or non-. According to the National Kidney Foundation, irrespective of diagnosis, the stage of the disease is based on the level of kidney function: Stage Description GFR(mL/min/1.73 m(2)) 1 Kidney damage with normal or decreased GFR 90 2 Kidney damage with mild decrease in GFR 60-89 3 Moderate decrease in GFR 30-59 4 Severe decrease in GFR 15-29 5 Kidney failure <15 (or dialysis) 55 Please note: The following may produce a false positive D Dimer test: - Rheumatoid factor greater than 60 IU/ml - Plasma hemoglobin greater than 0.05 gm/dl - Bilirubin greater than 50 mg/dl - Lipids greater than 1000 mg/dl - FDP greater than 20 ug/ml 56 Prescribed Medications: Lorazepam (Lorazepam), Oxycodone (Oxycodone), Fluoxetine (Fluoxetine), Acetaminophen (Acetaminophen) 57 Prescribed Medications: Lorazepam (Lorazepam), Oxycodone (Oxycodone), Fluoxetine (Fluoxetine), Acetaminophen (Acetaminophen) 58 Prescribed Medications: Lorazepam (Lorazepam), Oxycodone (Oxycodone), Fluoxetine (Fluoxetine), Acetaminophen (Acetaminophen) 59 Prescribed Medications: Lorazepam (Lorazepam), Oxycodone (Oxycodone), Fluoxetine (Fluoxetine), Acetaminophen (Acetaminophen) 60 Prescribed Medications: Lorazepam (Lorazepam), Oxycodone (Oxycodone), Fluoxetine (Fluoxetine), Acetaminophen (Acetaminophen) 61 Prescribed Medications: Lorazepam (Lorazepam), Oxycodone (Oxycodone), Fluoxetine (Fluoxetine), Acetaminophen (Acetaminophen) 62 Positive Consistent 63 Positive Consistent Noroxymorphone is the metabolite of four different parent drugs: oxycodone, oxymorphone, naloxone and naltrexone. 64 Positive Consistent 65 Positive >5000 Consistent Prescribed Medications: Lorazepam (Lorazepam), Oxycodone (Oxycodone), Fluoxetine (Fluoxetine), Acetaminophen (Acetaminophen) 66 Prescribed Medications: Lorazepam (Lorazepam), Oxycodone (Oxycodone), Fluoxetine (Fluoxetine), Acetaminophen (Acetaminophen) 67 Prescribed Medications: Lorazepam (Lorazepam), Oxycodone (Oxycodone), Fluoxetine (Fluoxetine), Acetaminophen (Acetaminophen) 68 Negative Inconsistent 69 Prescribed Medications: Lorazepam (Lorazepam), Oxycodone (Oxycodone), Fluoxetine (Fluoxetine), Acetaminophen (Acetaminophen) 70 Prescribed Medications: Lorazepam (Lorazepam), Oxycodone (Oxycodone), Fluoxetine (Fluoxetine), Acetaminophen (Acetaminophen) 71 Negative Inconsistent 72 Prescribed Medications: Lorazepam (Lorazepam), Oxycodone (Oxycodone), Fluoxetine (Fluoxetine), Acetaminophen (Acetaminophen) 73 Prescribed Medications: Lorazepam (Lorazepam), Oxycodone (Oxycodone), Fluoxetine (Fluoxetine), Acetaminophen (Acetaminophen) Procedures Date Code Description Status 09/02/2017 72090 Spirometry Completed 09/02/2017 55867 Tympanometry Completed Encounters Type Date Location Provider Dx Diagnosis Office Visit 10/20/2018 [facility] Santiago Barron J45.909 Unspecified asthma, 11:15a James uncomplicated M25.571 Pain in right ankle and joints of right foot F17.210 Nicotine dependence, cigarettes, uncomplicated S92.101D Unsp fracture of right talus, subs for fx w routn heal G50.0 Trigeminal neuralgia M25.562 Pain in left knee E66.01 Morbid (severe) obesity due to excess calories F33.9 Major depressive disorder, recurrent, unspecified F41.9 Anxiety disorder, unspecified G47.00 Insomnia, unspecified Z79.899 Other [facility] (current) drug therapy Office Visit 09/20/2018 11:15a [facility] Santiago Barron J45.909 Unspecified asthma, James Jensen uncomplicated M25.571 Pain in right ankle and joints of right foot F17.210 Nicotine dependence, cigarettes, uncomplicated S92.101D Unsp fracture of right talus, subs for fx w routn heal G50.0 Trigeminal neuralgia M25.562 Pain in left knee E66.01 Morbid (severe) obesity due to excess calories F33.9 Major depressive disorder, recurrent, unspecified F41.9 Anxiety disorder, unspecified G47.00 Insomnia, unspecified Z79.899 Other [facility] (current) drug therapy Office Visit 08/18/2018 11:15a [facility] Santiago Barron J45.909 Unspecified asthma, MRalph, MRoxann. uncomplicated M25.571 Pain in right ankle and joints of right foot F17.210 Nicotine dependence, cigarettes, uncomplicated S92.101D Unsp fracture of right talus, subs for fx w routn heal G50.0 Trigeminal neuralgia M25.562 Pain in left knee E66.01 Morbid (severe) obesity due to excess calories F33.9 Major depressive disorder, recurrent, unspecified F41.9 Anxiety disorder, unspecified G47.00 Insomnia, unspecified Z79.899 Other [facility] (current) drug therapy Office Visit 07/21/2018 11:15a [facility] Santiago Barron J45.909 Unspecified asthma, M., MRalphD. uncomplicated M25.571 Pain in right ankle and joints of right foot F17.210 Nicotine dependence, cigarettes, uncomplicated S92.101D Unsp fracture of right talus, subs for fx w routn heal G50.0 Trigeminal neuralgia M25.562 Pain in left knee E66.01 Morbid (severe) obesity due to excess calories F33.9 Major depressive disorder, recurrent, unspecified F41.9 Anxiety disorder, unspecified G47.00 Insomnia, unspecified Z79.899 Other group home (current) drug therapy Office Visit 06/21/2018 11:15a [facility] Santiago Barron J45.909 Unspecified asthma, MRalph, MRalphD. uncomplicated M25.571 Pain in right ankle and joints of right foot F17.210 Nicotine dependence, cigarettes, uncomplicated S92.101D Unsp fracture of right talus, subs for fx w routn heal G50.0 Trigeminal neuralgia M25.562 Pain in left knee E66.01 Morbid (severe) obesity due to excess calories F33.9 Major depressive disorder, recurrent, unspecified F41.9 Anxiety disorder, unspecified G47.00 Insomnia, unspecified Z79.899 Other [facility] (current) drug therapy Office Visit 05/19/2018 11:15a [facility] Santiago Barron, E66.01 Morbid (severe) M.D. obesity due to excess calories F17.210 Nicotine dependence, cigarettes, uncomplicated F33.9 Major depressive disorder, recurrent, unspecified F41.9 Anxiety disorder, unspecified M25.571 Pain in right ankle and joints of right foot J45.909 Unspecified asthma, uncomplicated G47.00 Insomnia, unspecified S92.101D Unsp fracture of right talus, subs for fx w routn heal G50.0 Trigeminal neuralgia M25.562 Pain in left knee Z79.899 Other [facility] (current) drug therapy Office Visit 05/05/2018 11:00a [facility] Santiago Barron, E66.01 Morbid (severe) M.D. obesity due to excess calories F17.210 Nicotine dependence, cigarettes, uncomplicated F33.9 Major depressive disorder, recurrent, unspecified F41.9 Anxiety disorder, unspecified M25.571 Pain in right ankle and joints of right foot J45.909 Unspecified asthma, uncomplicated G47.00 Insomnia, unspecified S92.101D Unsp fracture of right talus, subs for fx w routn heal G50.0 Trigeminal neuralgia M25.562 Pain in left knee Z79.899 Other group home (current) drug therapy Office Visit 04/21/2018 11:00a [facility] Santiago Barron, E66.01 Morbid (severe) M.D. obesity due to excess calories F17.210 Nicotine dependence, cigarettes, uncomplicated F33.9 Major depressive disorder, recurrent, unspecified F41.9 Anxiety disorder, unspecified M25.571 Pain in right ankle and joints of right foot J45.909 Unspecified asthma, uncomplicated G47.00 Insomnia, unspecified S92.101D Unsp fracture of right talus, subs for fx w routn heal G50.0 Trigeminal neuralgia M25.562 Pain in left knee Z79.899 Other [facility] (current) drug therapy Office Visit 04/06/2018 11:30a [facility] Santiago Barron, E66.01 Morbid (severe) M.D. obesity due to excess calories F17.210 Nicotine dependence, cigarettes, uncomplicated F33.9 Major depressive disorder, recurrent, unspecified F41.9 Anxiety disorder, unspecified M25.571 Pain in right ankle and joints of right foot J45.909 Unspecified asthma, uncomplicated G47.00 Insomnia, unspecified S92.101D Unsp fracture of right talus, subs for fx w routn heal G50.0 Trigeminal neuralgia M25.562 Pain in left knee Z79.899 Other group home (current) drug therapy Office Visit 03/10/2018 4:45p [facility] Santiago Barron., M25.571 Pain in right M.D. ankle and joints of right foot S92.101D Unsp fracture of right talus, subs for fx w routn heal J45.909 Unspecified asthma, uncomplicated F41.9 Anxiety disorder, unspecified F33.9 Major depressive disorder, recurrent, unspecified G47.00 Insomnia, unspecified G50.0 Trigeminal neuralgia F17.210 Nicotine dependence, cigarettes, uncomplicated E66.01 Morbid (severe) obesity due to excess calories M25.562 Pain in left knee Z79.899 Other group home (current) drug therapy Office Visit 02/09/2018 11:30a [facility] Santiago Barron., M25.571 Pain in right M.D. ankle and joints of right foot S92.101D Unsp fracture of right talus, subs for fx w routn heal J45.909 Unspecified asthma, uncomplicated F41.9 Anxiety disorder, unspecified F33.9 Major depressive disorder, recurrent, unspecified G47.00 Insomnia, unspecified G50.0 Trigeminal neuralgia F17.210 Nicotine dependence, cigarettes, uncomplicated E66.01 Morbid (severe) obesity due to excess calories M25.562 Pain in left knee Z79.899 Other [facility] (current) drug therapy Office Visit 01/10/2018 11:30a [facility] Santiago Barron M., M25.571 Pain in right M.D. ankle and joints of right foot S92.101D Unsp fracture of right talus, subs for fx w routn heal J45.909 Unspecified asthma, uncomplicated F41.9 Anxiety disorder, unspecified F33.9 Major depressive disorder, recurrent, unspecified G47.00 Insomnia, unspecified G50.0 Trigeminal neuralgia F17.210 Nicotine dependence, cigarettes, uncomplicated E66.01 Morbid (severe) obesity due to excess calories M25.562 Pain in left knee Z79.899 Other group home (current) drug therapy Office Visit 12/08/2017 10:45a [facility] Anderson, Donnietania Jensen, M25.571 Pain in right M.D. ankle and joints of right foot S92.101D Unsp fracture of right talus, subs for fx w routn heal J45.909 Unspecified asthma, uncomplicated F41.9 Anxiety disorder, unspecified F33.9 Major depressive disorder, recurrent, unspecified G47.00 Insomnia, unspecified G50.0 Trigeminal neuralgia F17.210 Nicotine dependence, cigarettes, uncomplicated E66.01 Morbid (severe) obesity due to excess calories M25.562 Pain in left knee Z79.899 Other [facility] (current) drug therapy Office Visit 11/23/2017 3:45p [facility] Anderson, Donnietania Jensen, M25.571 Pain in right M.D. ankle and joints of right foot S92.101D Unsp fracture of right talus, subs for fx w routn heal J45.909 Unspecified asthma, uncomplicated F41.9 Anxiety disorder, unspecified F33.9 Major depressive disorder, recurrent, unspecified G47.00 Insomnia, unspecified G50.0 Trigeminal neuralgia F17.210 Nicotine dependence, cigarettes, uncomplicated Z68.41 Body mass index (BMI) 40.0-44.9, adult E66.01 Morbid (severe) obesity due to excess calories M25.562 Pain in left knee Z79.899 Other [facility] (current) drug therapy Z00.01 Encounter for general adult medical exam w abnormal findings Office Visit 11/15/2017 11:45a [facility] Anderson, Donnietania Lerner., M25.571 Pain in right M.D. ankle and joints of right foot S92.101D Unsp fracture of right talus, subs for fx w routn heal J45.909 Unspecified asthma, uncomplicated F41.9 Anxiety disorder, unspecified F33.9 Major depressive disorder, recurrent, unspecified G47.00 Insomnia, unspecified G50.0 Trigeminal neuralgia F17.210 Nicotine dependence, cigarettes, uncomplicated E66.01 Morbid (severe) obesity due to excess calories M25.562 Pain in left knee Z79.899 Other [facility] (current) drug therapy Office Visit 10/29/2017 11:15a [facility] Santiago Barron, M25.571 Pain in right M.D. ankle and joints of right foot S92.101D Unsp fracture of right talus, subs for fx w routn heal J45.909 Unspecified asthma, uncomplicated F41.9 Anxiety disorder, unspecified F33.9 Major depressive disorder, recurrent, unspecified G47.00 Insomnia, unspecified G50.0 Trigeminal neuralgia F17.210 Nicotine dependence, cigarettes, uncomplicated E66.01 Morbid (severe) obesity due to excess calories M25.562 Pain in left knee Z79.899 Other group home (current) drug therapy Office Visit 10/15/2017 11:30a [facility] Santiago Barron, M25.571 Pain in right M.D. ankle and joints of right foot S92.101D Unsp fracture of right talus, subs for fx w routn heal J45.909 Unspecified asthma, uncomplicated F41.9 Anxiety disorder, unspecified F33.9 Major depressive disorder, recurrent, unspecified G47.00 Insomnia, unspecified G50.0 Trigeminal neuralgia F17.210 Nicotine dependence, cigarettes, uncomplicated E66.01 Morbid (severe) obesity due to excess calories M25.562 Pain in left knee Z79.899 Other group home (current) drug therapy Office Visit 09/29/2017 2:15p [facility] Santiago Barron, M25.571 Pain in right M.D. ankle and joints of right foot S92.101D Unsp fracture of right talus, subs for fx w routn heal J45.909 Unspecified asthma, uncomplicated F41.9 Anxiety disorder, unspecified F33.9 Major depressive disorder, recurrent, unspecified G47.00 Insomnia, unspecified G50.0 Trigeminal neuralgia F17.210 Nicotine dependence, cigarettes, uncomplicated E66.01 Morbid (severe) obesity due to excess calories Z79.899 Other [facility] (current) drug therapy M25.562 Pain in left knee Office Visit 09/15/2017 1:45p [facility] Anderson, Ahmad M., M25.571 Pain in right M.D. ankle and joints of right foot S92.101D Unsp fracture of right talus, subs for fx w routn heal J45.909 Unspecified asthma, uncomplicated F41.9 Anxiety disorder, unspecified F33.9 Major depressive disorder, recurrent, unspecified G47.00 Insomnia, unspecified G50.0 Trigeminal neuralgia F17.210 Nicotine dependence, cigarettes, uncomplicated E66.01 Morbid (severe) obesity due to excess calories Z79.899 Other group home (current) drug therapy J20.9 Acute bronchitis, unspecified J01.40 Acute pansinusitis, unspecified R06.02 Shortness of breath R05 Cough R09.81 Nasal congestion H92.09 Otalgia, unspecified ear Office Visit 09/02/2017 8:30a [facility] Santiago Barron., M25.571 Pain in right M.D. ankle and joints of right foot S92.101D Unsp fracture of right talus, subs for fady w routn heal J45.909 Unspecified asthma, uncomplicated F41.9 Anxiety disorder, unspecified F33.9 Major depressive disorder, recurrent, unspecified G47.00 Insomnia, unspecified G50.0 Trigeminal neuralgia F17.210 Nicotine dependence, cigarettes, uncomplicated H92.09 Otalgia, unspecified ear E66.01 Morbid (severe) obesity due to excess calories Z79.899 Other group home (current) drug therapy J20.9 Acute bronchitis, unspecified R06.02 Shortness of breath R05 Cough R09.81 Nasal congestion J01.40 Acute pansinusitis, unspecified Office Visit 08/26/2017 10:45a [facility] Santiago Barron., M25.571 Pain in right M.D. ankle and joints of right foot S92.101D Unsp fracture of right talus, subs for fx w routn heal J45.909 Unspecified asthma, uncomplicated F41.9 Anxiety disorder, unspecified F33.9 Major depressive disorder, recurrent, unspecified G47.00 Insomnia, unspecified G50.0 Trigeminal neuralgia F17.210 Nicotine dependence, cigarettes, uncomplicated E66.01 Morbid (severe) obesity due to excess calories Z79.899 Other group home (current) drug therapy Z68.41 Body mass index (BMI) 40.0-44.9, adult Plan of Treatment 10/20/2018 - Santiago Barron M.D.J45.909 Unspecified asthma, uncomplicatedComments:MDI / NEBULIZER TX PRN AVOID EXPOSURE TO SMOKING OR FUMES SMOKING [id number] Pain in right ankle and joints of right footComments: EXERCISE/HEAT/MESSAGETYLENOL OR MOTRIN PRNACE WRAP PRN USE SHOES INSERTS/ CUSHION DUR WVRWXBDC13.210 Nicotine dependence, cigarettes, uncomplicatedComments:SMOKING CESSATION [id number] Unspecified fracture of right talus, subsequent encounter foComments:EXERCISE/HEAT/MESSAGE TYLENO OR MOTRIN PRNF/U WITH XDDTLM60.0 Trigeminal neuralgiaComments: COUNCELLING AND REASSURANCETYLENOL OR MOTRIN PRN HEAT OR COLD PACK ( WHICH EVER PROVIDE COMFORT)M25.562 Pain in left kneeComments:EXERCISE/HEAT /MESSAGEAVOID HEAVY LIFTING WT LOSSTYLENOL OR MOTRIN PRN DUR QIXCWLJR13.01 Morbid (severe) obesity due to excess caloriesComments:WT LOSS COUNCELLINGEXERCISEDIET [id number] Major depressive disorder, recurrent, unspecifiedComments: COUNCELLING AND REASSURANCE RELAXATION TECHNIQUES DISCUSSED COUNSELED RE: STRESSORS IN LIFEF41.9 Anxiety disorder, unspecifiedComments:COUNCELLING AND REASSURANCE RELAXATION TECHNIQUES DISCUSSEDCOUNSELED RE: STRESSORS IN LIFE AVOID ALLENERGY/HIGH CAFFEINE DRINKS DUR YGMFKYVG44.00 Insomnia, unspecifiedComments:COUNCELLING AND REASSURANCE RELAXATION TECHNIQUES DISCUSSED COUNSELED RE: STRESSORS IN LIFE TYLENOLPM OR MOTRIN PM PRN DUR [id number] Other [facility] (current) drug therapyComments:REVIEWED MEDICATIONS AND DIRECTIONS WITH PATIENT DUR CHECKED
--- OUTSIDE RECORDS SUMMARY | 2018-11-18 00:32 | XMS REPORT | Continuity of Care Document ---
:1990 External Reference #:[id number] Author Name Santiago Barron M.D. 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 M.DRalph 10/14/19 needed 18 Amoxicillin 09/02/20 Hx Tablets 500mg 40tabs 2 by mouth twice M25.571 Anderson, Ahmad 17 - a day M., M.DRalph 09/12/20 17 Prednisone 09/02/20 Hx Tablets 20mg 8tabs 2 tab by mouth M25.571 Donnie Barronmad 17 - daily 4 days M., M.D. 09/05/20 17 Lorazepam 08/26/20 Hx Tablets 0.5mg 30tabs 1 tab by mouth G47.00 Anderson Donniemad 17 - twice a day as MCamila RosasDRalph 09/30/19 needed 18 F41.9 Fluoxetine HCL 08/26/2017 - Hx Capsules 20mg 30caps 1 by mouth F41.9 Anderson, Donniechelad (PMDD) 10/14/2017 every day James Jensen F33.9 Immunizations Description No Information Available Vital Signs Date Vital Result Comment 11/17/2018 11:05am BP Systolic 128 mmHg BP Diastolic 70 mmHg Height 66 inches 5'6" Weight 259.00 lb BMI (Body Mass Index) 41.8 kg/m2 Heart Rate 87 /min Respiratory Rate 18 /min 10/20/2018 10:42am BP Systolic 126 mmHg BP [...] Result H/L Range Note Ethyl Glucuronide 04/06/2018 [facility] Ethyl Negative N 500 Glucuronide ng/mL PDF SEE IMAGE Laboratory test finding 04/06/2018 [facility] Tramadol Negative ng/mL N 5 1 Gabapentin Negative ng/mL N 100 2 Urine DRG SCR 04/06/2018 [facility] Amphetamine NEGATIVE N 1000 (12PNL-PM) Barbiturate NEGATIVE N 200 Benzodiazepine NEGATIVE N 200 Buprenorphine NEGATIVE N 15 Cannabinoid NEGATIVE N 50 Cocaine NEGATIVE N 300 Methadone NEGATIVE N 300 Opiate POSITIVE Abnormal 300 Oxycodone POSITIVE Abnormal 300 Phencyclidine NEGATIVE N 25 3 Cocaine Panel By 04/06/2018 [facility] Benzoylecgonine Negative ng/mL N 50 4 LC/MS/MS (Cocaine) Amphetamine Panel 04/06/2018 [facility] Amphetamine Negative ng/ mL N 50 By LC/MS/MS Methamphetamine Negative ng/mL N 50 Mdma (Ecstasy) Negative ng/mL N 50 Mda Negative ng/ml N 50 Mdea Negative ng/mL N 50 5 Specimen Validity 04/06/2018 [facility] Creatinine, Urine 84 mg/ dL N >20 Panel Color YELLOW N Yellow pH 6.8 N 5.0-8.0 Specific [place] 1.012 N 1.001-1.035 6 Opiates Panel By 04/06/2018 [facility] 6-Rohit (Heroin Negative ng/ mL [...] N 50 10 Methadone Panel By 04/06/2018 [facility] Eddp Negative ng/mL N 10 LC/MS/MS Methadone Negative ng/mL N 10 11 Buprenorphine Panel By 04/06/2018 [facility] Buprenorphine Negative ng/mL N 5 LC/MS/MS Naloxone Negative ng/mL N 10 Norbuprenorphine Negative ng/mL N 5 12 Benzodiazepines 04/06/2018 [facility] 2-Hydroxyethylflurazepam Negative N 10 Panel [...] N 10 13 Barbiturates Panel By 04/06/2018 [facility] Butalbital Negative ng/mL N 100 LC/MS/MS Pentobarbital Negative ng/mL N 100 Phenobarbital Negative ng/mL N 100 Secobarbital Negative ng/mL N 100 14 Antidepressants Panel 04/06/2018 [facility] Amitriptyline Negative ng/mL N 20 By LC/MS/MS Clomipramine Negative ng/mL N 20 Desipramine Negative ng/mL N 20 Doxepin Negative ng/mL N 20 Fluoxetine Negative ng/mL N 20 Imipramine Negative ng/mL N 20 Norclomipramine Negative ng/mL N 20 Nordoxepin Negative ng/mL N 20 Nortriptyline Negative ng/mL N 20 Sertraline Negative ng/mL N 20 Trimipramine Negative ng/mL N 20 15 Urine Drug [facility] 04/06/2018 [facility] [id number]-8-Cooh Negative ng/mL N 5 16 Ethyl Glucuronide 10/15/2017 [facility] Ethyl Glucuronide Negative ng/mL N 500 PDF SEE IMAGE Laboratory test finding 10/15/2017 [facility] Tramadol Negative ng/mL N 5 17 Gabapentin Negative ng/mL N 100 18 Cotinine Positive Consist <SEE NOTE> ng/mL N 500 19 Urine DRG SCR 10/15/2017 [facility] Amphetamine NEGATIVE N 1000 (12PNL-PM) Barbiturate NEGATIVE N 200 Benzodiazepine NEGATIVE N 200 Buprenorphine NEGATIVE N 15 Cannabinoid NEGATIVE N 50 Cocaine NEGATIVE N 300 Methadone NEGATIVE N 300 Eddp NEGATIVE N 300 Methaqualone NEGATIVE N 300 Opiate POSITIVE Abnormal 300 Oxycodone POSITIVE Abnormal 300 Phencyclidine NEGATIVE N 25 Propoxyphene NEGATIVE N 300 20 Cocaine Panel By 10/15/2017 [facility] Benzoylecgonine Negative ng/mL N 50 21 LC/MS/MS (Cocaine) Amphetamine Panel 10/15/2017 [facility] Amphetamine Negative ng/ mL N 50 By LC/MS/MS Methamphetamine Negative ng/mL N 50 Mdma (Ecstasy) Negative ng/mL N 50 Mda Negative ng/ml N 50 Mdea Negative ng/mL N 50 22 Specimen Validity 10/15/2017 [facility] Creatinine, Urine 261 mg/ dL N >20 Panel Color YELLOW N Yellow pH 7.3 N 5.0-8.0 Specific [place] 1.018 N 1.001-1.035 23 Opiates Panel By 10/15/2017 [facility] 6-Rohit (Heroin Negative ng/ mL [...] N 50 27 Methadone Panel By 10/15/2017 [facility] Eddp Negative ng/mL N 10 LC/MS/MS Methadone Negative ng/mL N 10 28 Buprenorphine Panel By 10/15/2017 [facility] Buprenorphine Negative ng/mL N 5 LC/MS/MS Naloxone Negative ng/mL N 10 Norbuprenorphine Negative ng/mL N 5 29 Benzodiazepines 10/15/2017 [facility] 2-Hydroxyethylflurazepam Negative N 10 Panel [...] N 10 30 Barbiturates Panel By 10/15/2017 [facility] Butalbital Negative ng/mL N 100 LC/MS/MS Pentobarbital Negative ng/mL N 100 Phenobarbital Negative ng/mL N 100 Secobarbital Negative ng/mL N 100 31 Antidepressants Panel 10/15/2017 [facility] Amitriptyline Negative ng/mL N 20 [...] Negative ng/mL N 20 33 Urine Drug [facility] 10/15/2017 [facility] [id number]-0-Cooh Negative ng/mL N 5 34 Ethyl Glucuronide 09/29/2017 [facility] Ethyl Glucuronide Negative ng/mL N 500 PDF SEE IMAGE Laboratory test finding 09/29/2017 [facility] Tramadol Negative ng/mL N 5 35 Gabapentin Negative ng/mL N 100 36 Cotinine Positive Consist <SEE NOTE> ng/mL N 500 37 Urine DRG SCR 09/29/2017 [facility] Amphetamine NEGATIVE N 1000 (12PNL-PM) Barbiturate NEGATIVE N 200 Benzodiazepine NEGATIVE N 200 Buprenorphine NEGATIVE N 15 Cannabinoid NEGATIVE N 50 Cocaine NEGATIVE N 300 Methadone NEGATIVE N 300 Eddp NEGATIVE N 300 Methaqualone NEGATIVE N 300 Opiate POSITIVE Abnormal 300 Oxycodone POSITIVE Abnormal 300 Phencyclidine NEGATIVE N 25 Propoxyphene NEGATIVE N 300 38 Cocaine Panel By 09/29/2017 [facility] Benzoylecgonine Negative ng/mL N 50 39 LC/MS/MS (Cocaine) Amphetamine Panel 09/29/2017 [facility] Amphetamine Negative ng/ mL N 50 By LC/MS/MS Methamphetamine Negative ng/mL N 50 Mdma (Ecstasy) Negative ng/mL N 50 Mda Negative ng/ml N 50 Mdea Negative ng/mL N 50 40 Specimen Validity 09/29/2017 [facility] Creatinine, Urine 172 mg/ dL N >20 Panel Color YELLOW N Yellow pH 5.5 N 5.0-8.0 Specific [place] 1.020 N 1.001-1.035 41 Opiates Panel By 09/29/2017 [facility] 6-Rohit (Heroin Negative ng/ mL [...] N 50 45 Methadone Panel By 09/29/2017 [facility] Eddp Negative ng/mL N 10 LC/MS/MS Methadone Negative ng/mL N 10 46 Buprenorphine Panel By 09/29/2017 [facility] Buprenorphine Negative ng/mL N 5 LC/MS/MS Naloxone Negative ng/mL N 10 Norbuprenorphine Negative ng/mL N 5 47 Benzodiazepines 09/29/2017 [facility] 2-Hydroxyethylflurazepam Negative N 10 Panel [...] N 10 49 Barbiturates Panel By 09/29/2017 [facility] Butalbital Negative ng/mL N 100 LC/MS/MS Pentobarbital Negative ng/mL N 100 Phenobarbital Negative ng/mL N 100 Secobarbital Negative ng/mL N 100 50 Antidepressants Panel 09/29/2017 [facility] Amitriptyline Negative ng/mL N 20 [...] ng/mL N 20 52 Urine Drug 09/29/2017 [facility] YAP-Impgx-7-Cooh Negative ng/mL N 5 53 [facility] test 08/31/2017 [facility] Troponin-I (TnI) 0.00 ng/mL < 0.04 finding Comp Metabolic 08/31/2017 [facility] Sodium 136 mmol/L N 133-145 Panel [...] 116.5 >60 54 CBC Auto Diff 08/31/2017 [facility] White Blood Count 6.4 10^3/uL N [...] Blood Cells % 0 Laboratory test 08/31/2017 [facility] Dimer < 200 ng/mL N Less Than 55 finding Quantitative 230 Ethyl Glucuronide 08/26/2017 [facility] Ethyl Glucuronide Negative N 500 ng/mL PDF SEE IMAGE Laboratory test finding 08/26/2017 [facility] Tramadol Negative ng/mL N 5 56 Gabapentin Negative ng/mL N 100 57 Urine DRG SCR 08/26/2017 [facility] Amphetamine NEGATIVE N 1000 (12PNL-PM) Barbiturate NEGATIVE N 200 Benzodiazepine NEGATIVE N 200 Buprenorphine NEGATIVE N 15 Cannabinoid NEGATIVE N 50 Cocaine NEGATIVE N 300 Methadone NEGATIVE N 300 Eddp NEGATIVE N 300 Methaqualone NEGATIVE N 300 Opiate POSITIVE Abnormal 300 Oxycodone POSITIVE Abnormal 300 Phencyclidine NEGATIVE N 25 Propoxyphene NEGATIVE N 300 58 Cocaine Panel By 08/26/2017 [facility] Benzoylecgonine Negative ng/mL N 50 59 LC/MS/MS (Cocaine) Amphetamine Panel 08/26/2017 [facility] Amphetamine Negative ng/ mL N 50 By LC/MS/MS Methamphetamine Negative ng/mL N 50 Mdma (Ecstasy) Negative ng/mL N 50 Mda Negative ng/ml N 50 Mdea Negative ng/mL N 50 60 Specimen Validity 08/26/2017 [facility] Creatinine, Urine 37 mg/ dL N >20 Panel Color YELLOW N Yellow pH 6.8 N 5.0-8.0 Specific [place] 1.007 N 1.001-1.035 61 Opiates Panel By 08/26/2017 [facility] 6-Rohit (Heroin Negative ng/ mL [...] N 50 65 Methadone Panel By 08/26/2017 [facility] Eddp Negative ng/mL N 10 LC/MS/MS Methadone Negative ng/mL N 10 66 Buprenorphine Panel By 08/26/2017 [facility] Buprenorphine Negative ng/mL N 5 LC/MS/MS Naloxone Negative ng/mL N 10 Norbuprenorphine Negative ng/mL N 5 67 Benzodiazepines 08/26/2017 [facility] 2-Hydroxyethylflurazepam Negative N 10 Panel [...] N 10 69 Barbiturates Panel By 08/26/2017 [facility] Butalbital Negative ng/mL N 100 LC/MS/MS Pentobarbital Negative ng/mL N 100 Phenobarbital Negative ng/mL N 100 Secobarbital Negative ng/mL N 100 70 Antidepressants Panel 08/26/2017 [facility] Amitriptyline Negative ng/mL N 20 [...] ng/mL N 20 72 Urine Drug 08/26/2017 [facility] MGO-Ecqvr-7-Cooh Negative ng/mL N 5 73 [facility] 1 Prescribed Medications: Oxycodone (Oxycodone), Acetaminophen (Acetaminophen) [...] (Acetaminophen) Procedures Date Code Description Status 09/02/2017 97621 Spirometry Completed 09/02/2017 88827 Tympanometry Completed Encounters Type Date Location Provider Dx Diagnosis Office Visit 10/20/2018 [facility] Santiago Barron J45.909 Unspecified asthma, 11:15a CamilaDRalph uncomplicated M25.571 Pain in right ankle and joints of right foot F17.210 Nicotine dependence, cigarettes, uncomplicated S92.101D Unsp fracture of right talus, subs for fx w routn heal G50.0 Trigeminal neuralgia M25.562 Pain in left knee E66.01 Morbid (severe) obesity due to excess calories F33.9 Major depressive disorder, recurrent, unspecified F41.9 Anxiety disorder, unspecified G47.00 Insomnia, unspecified Z79.899 Other terminal operator (current) drug therapy Office Visit 09/20/2018 11:15a [facility] Santiago Barron J45.909 Unspecified Camila bellamy M.D. uncomplicated M25.571 Pain in right ankle and joints of right foot F17.210 Nicotine dependence, cigarettes, uncomplicated S92.101D Unsp fracture of right talus, subs for fx w routn heal G50.0 Trigeminal neuralgia M25.562 Pain in left knee E66.01 Morbid (severe) obesity due to excess calories F33.9 Major depressive disorder, recurrent, unspecified F41.9 Anxiety disorder, unspecified G47.00 Insomnia, unspecified Z79.899 Other prison (current) drug therapy Office Visit 08/18/2018 11:15a [facility] Santiago Barron J45.909 Unspecified asthma, Camila MRoxann. uncomplicated M25.571 Pain in right ankle and joints of right foot F17.210 Nicotine dependence, cigarettes, uncomplicated S92.101D Unsp fracture of right talus, subs for fx w routn heal G50.0 Trigeminal neuralgia M25.562 Pain in left knee E66.01 Morbid (severe) obesity due to excess calories F33.9 Major depressive disorder, recurrent, unspecified F41.9 Anxiety disorder, unspecified G47.00 Insomnia, unspecified Z79.899 Other terminal operator (current) drug therapy Office Visit 07/21/2018 11:15a [facility] Santiago Barron J45.909 Unspecified asthma, MRalph, [...] disorder, unspecified G47.00 Insomnia, unspecified Z79.899 Other prison (current) drug therapy Office Visit 06/21/2018 11:15a [facility] AndersonSantiago martins J45.909 Unspecified asthma, M., M.D. uncomplicated M25.571 Pain in right ankle and joints of right foot F17.210 Nicotine dependence, cigarettes, uncomplicated S92.101D Unsp fracture of right talus, subs for fx w routn heal G50.0 Trigeminal neuralgia M25.562 Pain in left knee E66.01 Morbid (severe) obesity due to excess calories F33.9 Major depressive disorder, recurrent, unspecified F41.9 Anxiety disorder, unspecified G47.00 Insomnia, unspecified Z79.899 Other prison (current) drug therapy Office Visit 05/19/2018 11:15a [facility] Santiago Barron, E66.01 Morbid (severe) M.D. [...] M25.562 Pain in left knee Z79.899 Other prison (current) drug therapy Office Visit 05/05/2018 11:00a [facility] Santiago Barron, E66.01 Morbid (severe) M.D. [...] M25.562 Pain in left knee Z79.899 Other prison (current) drug therapy Office Visit 04/21/2018 11:00a [facility] Santiago Barron, E66.01 Morbid (severe) M.D. [...] M25.562 Pain in left knee Z79.899 Other terminal operator (current) drug therapy Office Visit 04/06/2018 11:30a [facility] Santiago Barron, E66.01 Morbid (severe) M.D. [...] M25.562 Pain in left knee Z79.899 Other terminal operator (current) drug therapy Office Visit 03/10/2018 4:45p [facility] Santiago Barron., M25.571 Pain in right [...] M25.562 Pain in left knee Z79.899 Other prison (current) drug therapy Office Visit 02/09/2018 11:30a [facility] Santiago Barron, M25.571 Pain in right [...] M25.562 Pain in left knee Z79.899 Other terminal operator (current) drug therapy Office Visit 01/10/2018 11:30a [facility] Santiago Barron, M25.571 Pain in right [...] M25.562 Pain in left knee Z79.899 Other prison (current) drug therapy Office Visit 12/08/2017 10:45a [facility] Anderson, Donnietania M., M25.571 Pain in right M.D. ankle [...] M25.562 Pain in left knee Z79.899 Other prison (current) drug therapy Office Visit 11/23/2017 3:45p [facility] Anderson, Donnietania Lerner., M25.571 Pain in [...] M25.562 Pain in left knee Z79.899 Other terminal operator (current) drug therapy Z00.01 Encounter for general adult medical exam w abnormal findings Office Visit 11/15/2017 11:45a [facility] Anderson, Donnietania Lerner., M25.571 Pain in [...] M25.562 Pain in left knee Z79.899 Other terminal operator (current) drug therapy Office Visit 10/29/2017 11:15a [facility] Santiago Barorn., M25.571 Pain in right M.D. ankle and joints of right foot S92.101D Unsp fracture of right talus, subs for fx w routn heal J45.909 Unspecified asthma, uncomplicated F41.9 Anxiety disorder, unspecified F33.9 Major depressive disorder, recurrent, unspecified G47.00 Insomnia, unspecified G50.0 Trigeminal neuralgia F17.210 Nicotine dependence, cigarettes, uncomplicated E66.01 Morbid (severe) obesity due to excess calories M25.562 Pain in left knee Z79.899 Other prison (current) drug therapy Office Visit 10/15/2017 11:30a [facility] Santiago Barron., M25.571 Pain in right [...] M25.562 Pain in left knee Z79.899 Other prison (current) drug therapy Office Visit 09/29/2017 2:15p [facility] Santiago Barron., M25.571 Pain in right M.D. ankle and joints of right foot S92.101D Unsp fracture of right talus, subs for fx w routn heal J45.909 Unspecified asthma, uncomplicated F41.9 Anxiety disorder, unspecified F33.9 Major depressive disorder, recurrent, unspecified G47.00 Insomnia, unspecified G50.0 Trigeminal neuralgia F17.210 Nicotine dependence, cigarettes, uncomplicated E66.01 Morbid (severe) obesity due to excess calories Z79.899 Other terminal operator (current) drug therapy M25.562 Pain in left knee Office Visit 09/15/2017 1:45p [facility] Santiago Barron., M25.571 Pain in right M.D. ankle and joints of right foot S92.101D Unsp fracture of right talus, subs for fx w routn heal J45.909 Unspecified asthma, uncomplicated F41.9 Anxiety disorder, unspecified F33.9 Major depressive disorder, recurrent, unspecified G47.00 Insomnia, unspecified G50.0 Trigeminal neuralgia F17.210 Nicotine dependence, cigarettes, uncomplicated E66.01 Morbid (severe) obesity due to excess calories Z79.899 Other terminal operator (current) drug therapy J20.9 Acute bronchitis, unspecified J01.40 Acute pansinusitis, unspecified R06.02 Shortness of breath R05 Cough R09.81 Nasal congestion H92.09 Otalgia, unspecified ear Office Visit 09/02/2017 8:30a [facility] Rui [place]ron[place] Eduarda., M25.571 Pain in right M.D. ankle and joints of right foot S92.101D Unsp fracture of right talus, subs for fx w routn heal J45.909 Unspecified asthma, uncomplicated F41.9 Anxiety disorder, unspecified F33.9 Major depressive disorder, recurrent, unspecified G47.00 Insomnia, unspecified G50.0 Trigeminal neuralgia F17.210 Nicotine dependence, cigarettes, uncomplicated H92.09 Otalgia, unspecified ear E66.01 Morbid (severe) obesity due to excess calories Z79.899 Other prison (current) drug therapy J20.9 Acute bronchitis, unspecified R06.02 Shortness of breath R05 Cough R09.81 Nasal congestion J01.40 Acute pansinusitis, unspecified Office Visit 08/26/2017 10:45a [facility] Santiago Barron., M25.571 Pain in right M.D. ankle and joints of right foot S92.101D Unsp fracture of right talus, subs for fx w routn heal J45.909 Unspecified asthma, uncomplicated F41.9 Anxiety disorder, unspecified F33.9 Major depressive disorder, recurrent, unspecified G47.00 Insomnia, unspecified G50.0 Trigeminal neuralgia F17.210 Nicotine dependence, cigarettes, uncomplicated E66.01 Morbid (severe) obesity due to excess calories Z79.899 Other terminal operator (current) drug therapy Z68.41 Body mass index (BMI) 40.0-44.9, adult Plan of Treatment 11/17/2018 - Santiago Barron M.D.J45.909 Unspecified asthma, uncomplicatedComments:MDI / NEBULIZER TX PRN AVOID EXPOSURE TO SMOKING OR FUMES SMOKING IDUPGXBXIQ02.571 Pain in right ankle and joints of right footComments: EXERCISE/HEAT/MESSAGETYLENOL OR MOTRIN PRNACE WRAP PRN USE SHOES INSERTS/ CUSHION DUR KUZSRMYS89.210 Nicotine dependence, cigarettes, uncomplicatedComments:SMOKING CESSATION CAJHCWSNJHIP05.101D Unspecified fracture of right talus, subsequent encounter foComments:EXERCISE/HEAT/MESSAGE TYLENO OR MOTRIN PRNF/U WITH JQCDYZ38.0 Trigeminal neuralgiaComments: COUNCELLING AND REASSURANCETYLENOL OR MOTRIN PRN HEAT OR COLD PACK ( WHICH EVER PROVIDE COMFORT)M25.562 Pain in left kneeComments:EXERCISE/HEAT /MESSAGEAVOID HEAVY LIFTING WT LOSSTYLENOL OR MOTRIN PRN DUR ZVLZNMAA26.01 Morbid (severe) obesity due to excess caloriesComments:WT LOSS COUNCELLINGEXERCISEDIET IEOPLSFQAUID11.9 Major depressive disorder, recurrent, unspecifiedComments: COUNCELLING AND REASSURANCE RELAXATION TECHNIQUES DISCUSSED COUNSELED RE: STRESSORS IN LIFEF41.9 Anxiety disorder, unspecifiedComments:COUNCELLING AND REASSURANCE RELAXATION TECHNIQUES DISCUSSEDCOUNSELED RE: STRESSORS IN LIFE AVOID ALLENERGY/HIGH CAFFEINE DRINKS DUR NWTUHICS04.00 Insomnia, unspecifiedComments:COUNCELLING AND REASSURANCE RELAXATION TECHNIQUES DISCUSSED COUNSELED RE: STRESSORS IN LIFE TYLENOLPM OR MOTRIN PM PRN DUR RFQZNPIU14.899 Other terminal operator (current) drug therapyComments:REVIEWED MEDICATIONS AND DIRECTIONS WITH PATIENT DUR CHECKED
--- NOTE | 2018-11-18 01:18 | ED ---
Skin Complaint - HPI Summary HPI Summary: This pt is a 28 y/o female presenting to [facility] c/o lump over her left thigh since 21:30 last night, 11/17/18. Pt reports she noticed a raised area, described as a "lump" last night. She states that this area was "hard and sore." Over the course of a couple of hours, after her son fell on the area, this area increased in size and now has bruising. Denies fever, chest pain, SOB. Pt takes oxycodone for trigeminal neuralgia every 6 hours PRN. Today she took 3 doses of oxycodone, her last dose was at 18:30. - History of Current Complaint Chief Complaint: EDExtremityLower Time Seen by Provider: 11/18/18 01:08 Stated Complaint: "LUMP IN LEFT LEG" PER PT Hx Obtained From: Patient Hx Last Menstrual Period: 09/01/17 Onset/Duration: Started Hours Ago, Still Present Skin Exposure Onset/Duration: Hours Ago Timing: Lasting Hours Current Severity: Moderate Pain Intensity: 6 Pain Scale Used: 0-10 Numeric Skin Location: Leg - left thigh Character: Swelling, Pain, Raised, Painful Aggravating Symptom(s): Nothing Alleviating Symptom(s): Nothing Associated Signs & Symptoms: Negative - Allergy/Home Medications Allergies/Adverse Reactions: Allergies Allergy/AdvReac Type Severity Reaction Status Date / Time MS Clarithromycin Allergy Intermediate Hives/fever Verified 11/18/18 00:17 [From Biaxin] MS Sulfamethoxazole Allergy Intermediate Hives Verified 11/18/18 00:17 w/Trimethoprim [From Bactrim] PMH/Surg Hx/FS Hx/Imm Hx Endocrine/Hematology History: Reports: Hx Anemia Denies: Hx Anticoagulant Therapy, Hx Diabetes, Hx Thyroid Disease, Other Endocrine/Hematological Disorders Cardiovascular History: Denies: Hx Congestive Heart Failure, Hx Hypertension, Hx Pacemaker/ICD, Other Cardiovascular Problems/Disorders Respiratory History: Reports: Hx Asthma Denies: Hx Chronic Obstructive Pulmonary Disease (COPD), Other Respiratory Problems/Disorders GI History: Reports: Hx Gall Bladder Disease Denies: Hx Ulcer, Other GI Disorders History: Reports: Other Problems/Disorders - Hx hydronephrosis x 1 year rt side/hx uti Denies: Hx Dialysis, Hx Renal Disease Musculoskeletal History: Denies: Hx Back Problems, Other Musculoskeletal History - R wrist fx x2 age 15, right ankle fracture Sensory History: Denies: Hx Contacts or Glasses, Hx Hearing Aid, Other Sensory Impairments Opthamlomology History: Denies: Hx Contacts or Glasses, Other Sensory Impairments Neurological History: Reports: Other Neuro Impairments/Disorders - trigeminal neuralgia Psychiatric History: Reports: Hx Anxiety, Hx Attention Deficit Hyperactivity Disorder, Hx Depression, Hx Panic Disorder - ANXIETY Denies: Other Psychiatric Issues/Disorders - Surgical History Surgery Procedure, Year, and Place: RT ANKLE FX-PINS SCREWS. . Gall Bladder. Tonsillectomy Hx Anesthesia Reactions: Yes - n/v Infectious Disease History: No Infectious Disease History: Denies: Hx Clostridium Difficile, Hx Hepatitis, Hx Human Immunodeficiency Virus (HIV), Hx of Known/Suspected MRSA, Hx Shingles, Hx Tuberculosis, Hx Known/ Suspected VRE, Hx Known/Suspected VRSA, History Other Infectious Disease, Traveled Outside the [place] in Last 30 Days - Family History Known Family History: Positive: Hypertension, Blood Disorder - clotting disorder Negative: Cardiac Disease, Diabetes Family History: No FHX of malignant hyperthermia. No FHx of anesthesia reaction - Social History Alcohol Use: Rare Hx Substance Use: No Substance Use Type: Reports: None Substance Use Comment - Amount & Last Used: prescribed. Smoking Status (MU): Light Every Day Tobacco Smoker Type: Cigarettes Amount Used/How Often: 1/2 cig/day Have You Smoked in the Last Year: Yes Review of Systems Negative: Fever, Chills Cardiovascular: Negative Respiratory: Negative Skin: Other - POS: left thigh lump, swelling, sore Positive: Bruising - left thigh All Other Systems Reviewed And Are Negative: Yes Physical Exam - Summary Physical Exam Summary: VITAL SIGNS: Reviewed. GENERAL: Patient is a well-developed and nourished female who is lying comfortable in the stretcher. Patient is not in any acute respiratory distress. HEAD AND FACE: No signs of trauma. No ecchymosis, hematomas or skull depressions. No sinus tenderness. EYES: PERRLA, EOMI x 2, No injected conjunctiva, no nystagmus. EARS: Hearing grossly intact. Ear canals and tympanic membranes are within normal limits. MOUTH: Oropharynx within normal limits. NECK: Supple, trachea is midline, no adenopathy, no JVD, no carotid bruit, no c- spine tenderness, neck with full ROM. CHEST: Symmetric, no tenderness at palpation LUNGS: Clear to auscultation bilaterally. No wheezing or crackles. CVS: Regular rate and rhythm, S1 and S2 present, no murmurs or gallops appreciated. ABDOMEN: Soft, non-tender. No signs of distention. No rebound no guarding, and no masses palpated. Bowel sounds are normal. EXTREMITIES: FROM in all major joints, no edema, no cyanosis or clubbing. Pt has varicose veins bilaterally. NEURO: Alert and oriented x 3. No acute neurological deficits. Speech is normal and follows commands. SKIN: Dry and warm. Ecchymotic area over the left upper thigh medially. Pt has varicose veins bilaterally. Triage Information Reviewed: Yes Vital Signs On Initial Exam: Initial Vitals Temp Pulse Resp BP Pulse Ox 98.1 F 92 16 112/69 100 11/18/18 00:13 11/18/18 00:13 11/18/18 00:13 11/18/18 00:13 11/18/18 00:13 Vital Signs Reviewed: Yes Diagnostics - Vital Signs Vital Signs Temp Pulse Resp BP Pulse Ox 11/18/18 00:13 98.1 F 92 16 112/69 100 - Laboratory Lab Statement: Any lab studies that have been ordered have been reviewed, and results considered in the medical decision making process. Course/Dx - Course Assessment/Plan: Pt is a 28 y/o female who presents with lump over her left thigh since 21:30 last night, 11/17/18. Pt reports she noticed a raised area, described as a "lump" last night. She states that this area was "hard and sore. " Over the course of a couple of hours, after her son fell on the area, this area increased in size and now has bruising. On exam pt has an ecchymotic area over the left upper thigh medially. Pt has varicose veins bilaterally. She is advised to use ice and not take ibuprofen for the next few days. Pt will be discharged home with follow up from her PCP in 1-2 days. Pt is instructed to return to the ED for any worsening or new symptoms. - Diagnoses Provider Diagnoses: Ecchymosis Discharge - Sign-Out/Discharge Documenting (check all that apply): Patient Departure - Discharge home Patient Received Moderate/Deep Sedation with Procedure: No - Discharge Plan Condition: Stable Disposition: HOME Patient Education Materials: Ecchymosis (ED) Referrals: [facility] [Outside] Additional Instructions: Use ice. Don't take ibuprofen for the next few days. PLEASE FOLLOW UP WITH YOUR PRIMARY CARE PROVIDER IN 1-2 DAYS. If you don't have one please follow up with [facility]. RETURN TO THE EMERGENCY DEPARTMENT FOR CHANGING OR WORSENING SYMPTOMS. - Attestation Statements Document Initiated by Scribe: Yes Documenting Scribe: Ivy Garcia Provider For Whom Scribe is Documenting (Include Credential): Boo Garcia MD Scribe Attestation: IIvy, scribed for Boo Garcia MD on 11/18/18 at 0125. Status of Scribe Document: Ready
[2018-11-18 01:33] VITALS: BP 119/76
== END 2018-11-18 01:34 | disposition home or self-care (01) ==
LOC: ED 00:07
DX: R58 Hemorrhage, not elsewhere classified (principal); F17.210 Nicotine dependence, cigarettes, uncomplicated; D64.9 Anemia, unspecified; J45.909 Unspecified asthma, uncomplicated; F41.9 Anxiety disorder, unspecified
CPT/HCPCS: 99282